=== PATIENT | male | born 1965 | race Two or more races ===

== ENCOUNTER 2023-10-16 10:21 | Emergency (ER) | payer MEDICAID ==
[~2023-10-16] VITALS: Ht 177.8 cm; Wt 87.5 kg
[2023-10-16 11:50] LABS: Basophils # (auto) 0 10 ^3/uL (0-0.2); Basophils % (auto) 0.5 % (0.0-2.0); Eosinophils # (auto) 0.1 10 ^3/uL (0-0.8); Eosinophils % (auto) 1.4 % (0.0-7.0); Hematocrit 41.5 % (41.0-53.0); Hemoglobin 13.6 g/dL (13.5-17.5); Lymphocytes # (auto) 1.2 10 ^3/uL (0.4-5.4); Lymphocytes % (auto) 27.6 % (10.0-50.0); Mean Corpuscular Hemoglobin 30.3 pg (28.0-32.0); Mean Corpuscular Hgb Conc. 32.9 g/dL (32.0-36.0); Mean Corpuscular Volume 92.2 fL (80.0-100.0); Monocytes # (auto) 0.3 10 ^3/uL (0-1.3); Monocytes % (auto) 8.2 % (0.0-12.0); Neutrophils # (auto) 2.6 10 ^3/uL (1.6-8.6); Neutrophils % (auto) 62.3 % (37.0-80.0); Nucleated Red Blood Cells % 0.2 %; Red Cell Distribution Width 14.2 % (11.8-14.3); White Blood Cell 4.2 10^3/uL (4.4-10.8)
[2023-10-16 11:53] LABS: Albumin 4.5 g/dL (3.2-4.8); Alkaline Phosphatase 70 U/L (46-116); Anion Gap 7 (5-15); Aspartate Aminotransferase 13 U/L (13-40); BUN/Creatinine Ratio 13.2 (10.0-20.0); Blood Urea Nitrogen 12 mg/dL (9-23); Calcium 9.9 mg/dL (8.5-10.1); Carbon Dioxide 28 mmol/L (20-30); Chloride 108 mmol/L (98-107); Glucose 109 mg/dL (74-106); Sodium 143 mmol/L (136-145)
[2023-10-16 11:54] LABS: Bilirubin, Total 0.9 mg/dL (0.2-1.0); Total Protein 6.9 g/dL (5.7-8.2)
[2023-10-16 11:59] VITALS: TEMP 98.4
[2023-10-16 12:00] LABS: Alanine Aminotransferase < 9 U/L (7-40)
[2023-10-16 13:35] LABS: Urine Bacteria None Seen /hpf (None Seen)
[2023-10-16 13:57] LABS: Urine Blood Negative /uL (Negative); Urine Clarity Clear (Clear); Urine Color Light-Yellow (Yellow); Urine Protein, UAD Negative (Negative); Urine Specific Gravity 1.013 (1.001-1.035); Urine Urobilinogen Normal (Negative); Urine WBC 1 /hpf (0 - 3); Urine pH 6.5 (5.0-9.0)
[2023-10-16 15:39] VITALS: BP 106/61; PULSE 58; RESP 18; O2SAT 98
== END 2023-10-16 17:01 | disposition home or self-care (01) ==
LOC: ER 10:21
DX: R06.00 Dyspnea, unspecified (principal); R07.89 Other chest pain
CPT/HCPCS: 36415; 71046; 80053; 81001; 84484; 85025; 85379; 93005

== ENCOUNTER 2024-04-01 10:45 | Emergency (ER) | payer MEDICAID ==
[~2024-04-01] VITALS: Ht 175.3 cm; Wt 88.0 kg
[2024-04-01 11:30] LABS: Urine Bacteria None Seen /hpf (None Seen)
[2024-04-01 11:42] LABS: Basophils # (auto) 0 10 ^3/uL (0-0.2); Basophils % (auto) 0.9 % (0.0-2.0); Eosinophils # (auto) 0.1 10 ^3/uL (0-0.8); Eosinophils % (auto) 1.6 % (0.0-7.0); Hematocrit 39.6 % (41.0-53.0); Hemoglobin 13.8 g/dL (13.5-17.5); Lymphocytes # (auto) 1.1 10 ^3/uL (0.4-5.4); Lymphocytes % (auto) 26.8 % (10.0-50.0); Mean Corpuscular Hemoglobin 32.1 pg (28.0-32.0); Mean Corpuscular Hgb Conc. 34.8 g/dL (32.0-36.0); Mean Corpuscular Volume 92.2 fL (80.0-100.0); Monocytes # (auto) 0.3 10 ^3/uL (0-1.3); Neutrophils # (auto) 2.6 10 ^3/uL (1.6-8.6); Neutrophils % (auto) 63.7 % (37.0-80.0); Nucleated Red Blood Cells % 0.1 %; Platelet Count (auto) 205 10^3/uL (140-450); Red Cell Distribution Width 13.3 % (11.8-14.3)
[2024-04-01 11:42] LABS: Urine Blood Negative /uL (Negative); Urine Clarity Clear (Clear); Urine Color Colorless (Yellow); Urine Protein, UAD Negative (Negative); Urine Specific Gravity 1.003 (1.001-1.035); Urine Urobilinogen Normal (Negative); Urine WBC <1 /hpf (0 - 3)
[2024-04-01] MEDS: KETOROLAC TROMETH 30 MG/ML 1ML VIAL IV ONE (11:53)
[2024-04-01] MEDS: FAMOTIDINE (10MG/ML) 2ML VL IV ONE (11:53)
[2024-04-01] MEDS: ONDANSETRON HCL 4 MG/2 ML VIAL IV ONE (11:53)
[2024-04-01 12:00] LABS: Albumin 4.5 g/dL (3.2-4.8); Alkaline Phosphatase 77 U/L (46-116); Anion Gap 6 (5-15); Aspartate Aminotransferase 12 U/L (13-40); BUN/Creatinine Ratio 9.2 (10.0-20.0); Bilirubin, Total 0.7 mg/dL (0.2-1.0); Blood Urea Nitrogen 8 mg/dL (9-23); Calcium 9.6 mg/dL (8.7-10.4); Carbon Dioxide 26 mmol/L (20-31); Chloride 111 mmol/L (98-107); Glucose 124 mg/dL (74-106); Potassium 3.9 mmol/L (3.5-5.1); Sodium 143 mmol/L (136-145)
[2024-04-01 12:01] LABS: Total Protein 7.2 g/dL (5.7-8.2)
[2024-04-01 12:07] LABS: Alanine Aminotransferase < 9 U/L (7-40)
[2024-04-01 12:09] VITALS: PULSE 62; RESP 14; O2SAT 97
[2024-04-01 13:06] VITALS: BP 119/73; PULSE 55; RESP 18; TEMP 98.2; O2SAT 97
[2024-04-01] MEDS ORDERED: FAMO-161 PO (13:17)
[2024-04-01] MEDS ORDERED: ACET-1304 PO (13:17)
[2024-04-01] MEDS ORDERED: DICY10CA PO (13:17)
== END 2024-04-01 14:34 | disposition home or self-care (01) ==
LOC: ER 10:45
DX: R10.13 Epigastric pain (principal); R10.11 Right upper quadrant pain; Z90.49 Acquired absence of other specified parts of digestive tract; Z98.890 Other specified postprocedural states; Z88.8 Allergy status to other drugs, medicaments and biological substances; Z79.899 Other long term (current) drug therapy
CPT/HCPCS: 36415; 74176; 80053; 81001; 83690; 85025; 96374; 96375; 99285; J1885; J2405; J3490

== ENCOUNTER → 2024-08-01 | Outpatient (CLI) | payer MEDICAID ==
[~2024-08-01] MED LIST: ACET-1304 PO; DICY10CA PO; FAMO-161 PO
[2024-08-01] MEDS: REGADENOSON 0.4 MG/5 ML SYRG IV ONE (11:13)
--- NOTE | 2024-08-01 18:03 | DVHSR ---
APPROVED REPORT Exam: Nuclear Stress Test Indication: Chest Pain Stress Tech: Valeria Rondon Ht: 5 ft 9 in Wt: 193 lbs BSA: 2.03 m2 HR: 46 bpm BP: 111/66 mmHg BMI: 28.49 Rhythm: NSR. Medical History Medical History: HARVINDER, Hyperlipidemia, former smoker, EF 55% Allergies: No known drug allergies Stress Test Details Stress Test: Pharmacologic stress testing performed using 0.4 mg of regadenoson per 5 mL given IV ov er 10 seconds. Reason for pharmacologic stress test: Chest Pain. HR Resting HR: 46 bpmMax Heart Rate (APMHR): 162.526528 bpm Max HR Achieved: 99 bpmTarget HR (85% APMHR): 137.987004 bpm % of APMHR: 61.11 Recovery HR: 70 bpm BP Resting BP: 111/66 mmHg Recovery BP: 109/63 mmHg ECG Resting ECG: NSR Clinical Reason for Termination: Completed protocol Nurse Comments Uneventful test Stress ECG Conclusion lvef 66% normal perfusion scan no ischemia NM EXAM: Myocardial Perfusion REST/STRESS Imaging Protocol: Rest Tc-99m/Stress Tc-99m 1 day Resting Data Rest SPECT myocardial perfusion imaging was performed in supine position 60 minutes following the int ravenous injection of 12.5 mCi of Tc-99m Sestamibi. Time of rest injection: 1000 Time of rest imagin Administration Route: IV Administration Site: Left AC Pharmacologic Stress Pharmacologic stress test was performed by injecting Regadenoson 0.4 mg IV push followed by the intra venous injection of 36.2 mCi of Tc-99m Sestamibi. Time of stress injection: 1115 Time of stress imagin Administration Route: IV Administration Site: Left AC Gated Stress SPECT was performed 60 minutes after stress injection. The images were gated to evaluate regional wall motion and calculate left ventricular ejection fracti on. Stress only was performed in the Supine position. Nuclear Conclusion Nuclear Findings: negative for ischemia lvef 66% normal perfusion scan no ischemia
== END | disposition home or self-care (01) ==
LOC: XYW 09:15
PROVIDERS: ATTEND Internal Medicine
DX: R07.9 Chest pain, unspecified (principal); E78.5 Hyperlipidemia, unspecified; G47.33 Obstructive sleep apnea (adult) (pediatric); Z87.891 Personal history of nicotine dependence
CPT/HCPCS: 78452; 93017; A9500

== ENCOUNTER 2024-11-04 22:58 | Emergency (ER) | payer MEDICAID ==
[~2024-11-04] VITALS: Ht 175.3 cm; Wt 87.7 kg
--- NOTE | 2024-11-04 23:36 | ED.PDOC ---
History of Present Illness HPI Comments 59-year-old male who came to ER for abdominal pain. Patient states he had laparoscopic inguinal hernia repair done earlier at [facility]. Shortly afterwards, he started having chest pains, upper back pains, abdominal pain, shortness a breath. Patient keeps rolling his tongue in and out, stating that he feels very thirsty but he is unable to swallow. Patient is very agitated at this time of care Chief Complaint: Abdominal Pain Time Seen by MD: 23:36 Primary Care Provider: unknown Reviewed Notes: Nurses Notes Allergies: Coded Allergies: Cortisone (Verified Allergy, Mild, 10/16/23) Home Meds Active Scripts Famotidine (Pepcid AC) 20 Mg Tab, 20 MG PO BID, #60 TAB Prov:GRAZYNA FERNANDEZ MD 04/01/24 Acetaminophen (Tylenol Extra Strength) 500 Mg Tab, 1000 MG PO Q6HP PRN, #30 TAB prn pain Prov:GRAZYNA FERNANDEZ MD 04/01/24 Dicyclomine Hcl (BENTYL CAPSULE) 10 Mg Cp, 2 CAP PO Q6HP PRN, #30 CAP 11 Refills prn abdominal pain Prov:GRAZYNA FERNANDEZ MD 04/01/24 Information Source: Patient Mode of Arrival: Ambulatory Severity: Moderate Timing: Hours Duration: Since onset Past Medical History PAST MEDICAL HISTORY: Denies Surgical History: Cholecystectomy, Hernia Repair Family History Family History: Reviewed,noncontributory to illness Social History Smoker: Non-Smoker Alcohol: Denies ETOH Use Drugs: Denies Drug Use Lives In: Home Constitutional: denies: chills, diaphoresis, fatigue, fever, malaise, sweats, weakness, others EENTM: denies: blurred vision, double vision, ear bleeding, ear discharge, ear drainage, ear pain, ear ringing, eye pain, eye redness, hearing loss, mouth pain, mouth swelling, nasal discharge, nose bleeding, nose congestion, nose pain, photophobia, tearing, throat pain, throat swelling, voice changes, others Respiratory: reports: SOB at rest, shortness of breath; denies: cough, hemoptysis, orthopnea, SOB with excertion, stridor, wheezing, others Cardiovascular: reports: chest pain; denies: dizzy spells, diaphoresis, Dyspnea on exertion, edema, irregular heart beat, left arm pain, lightheadedness, palpitations, PND, syncope, others Gastrointestinal: reports: abdominal pain; denies: abdomen distended, blood streaked bowels, constipated, diarrhea, dysphagia, difficulty swallowing, hematemesis, melena, nausea, poor appetite, poor fluid intake, rectal bleeding, rectal pain, vomiting, others Genitourinary: denies: burning, dysuria, flank pain, frequency, hematuria, incontinence, penile discharge, penile sore, pain, testicle pain, testicle swelling, urgency, others Neurological: denies: dizziness, fainting, headache, left sided numbness, left sided weakness, numbness, paresthesia, pre-existing deficit, right sided numbness, right sided weakness, seizure, speech problems, tingling, tremors, weakness, others Musculoskeletal: reports: back pain; denies: gout, joint pain, joint swelling, muscle pain, muscle stiffness, neck pain, others Integumetry: denies: bruises, change in color, change in hair/nails, dryness, laceration, lesions, lumps, rash, wounds, others Allergic/Immunocompromised: denies: Difficulty Healing, Frequent Infections, Hives, Itching, others Hematologic/Lymphatic: denies: anemia, blood clots, easy bleeding, easy bruising, swollen glands, others Endocrine: denies: excessive hunger, excessive sweating, excessive thirst, excessive urination, flushing, intolerance to cold, intolerance to heat, unexpl ained weight gain, unexplained weight loss, others Psychiatric: denies: anxiety, bipolar disorder, depression, hopeless, panic disorder, schizophrenia, sleepless, suicidal, others Physical Exam General Appearance: No Apparent Distress, Normal HEENT: Normal ENT Inspection, Pharynx Normal, TMs Normal Neck: Full Range of Motion, Non-Tender, Normal, Normal Inspection Respiratory: Chest Non-Tender, Lungs Clear, No Accessory Muscle Use, No Respiratory Distress, Normal Breath Sounds Cardiovascular: No Edema, No JVD, No Murmur, No Gallop, Normal Peripheral Pulses, Regular Rate/Rhythm Breast Exam: Deferred Gastrointestinal: No Organomegaly, Non Tender, No Pulsatile Mass, Normal Bowel Sounds, Soft Genitalia: Deferred Pelvic: Deferred Rectal: Deferred Extremities: No calf tenderness, Normal capillary refill, Normal inspection, Normal range of motion, Non-tender, No pedal edema Musculoskeletal : Apperance: Normal Neurologic: Alert, site surveyor II-XII nml as Tested, No Motor Deficits, Normal Affect, Normal Mood, No Sensory Deficits Cerebellar Function: Normal Reflexes: Normal Skin: Dry, Normal Color, Warm Lymphatic: No Adenopathy Was a procedure done? Was a procedure done?: No Differential Dx Considerations may include: Pneumonia, hernia, pulmonary emboli, substance abuse X-Ray, Labs, Meds, VS Vital Signs Date Time Temp Pulse Resp B/P (MAP) Pulse Ox O2 Delivery O2 Flow Rate FiO2 11/05/24 01:43 98.7 85 18 103/60 (74) 95 98.7 11/05/24 00:25 89 17 127/84 11/04/24 23:55 89 17 150/87 11/04/24 23:41 89 17 97 Room Air* 0 21 11/04/24 23:40 98.8 88 19 150/87 (108) 97 98.8 11/04/24 23:36 100.0 83 26 142/90 (107) 97 100.0 11/04/24 23:33 85 Lab Test 11/05/24 02:43 11/05/24 00:58 11/04/24 23:59 11/04/24 23:27 Range/Units POC Glucose 163 H 70-106 mg/dl Blood Gas Specimen Type Venous Blood Gas Sample Site Other Blood Gas Patient Temperature 37.0 Arterial Blood Date Drawn [id number] Conrad Test N/a Venous Blood pH 7.392 7.320-7.430 Venous Blood pCO2 at Patient Temp 36.2 L 38.0-54.0 mmHg Venous Blood pO2 at Patient Temp 50.0 H 23.0-48.0 mmHg Venous Blood HCO3 21.5 L 22.0-29.0 mmol/L Venous Blood Base Excess -2.8 L -2.0-3.0 mmol/L Blood Gas Modality Room air FiO2 % 21.0 Blood Gas Comments Vbg Urine Color Light-yellow Yellow Urine Clarity Clear Clear Urine pH 6.5 5.0-9.0 Urine Specific [place] 1.011 1.001-1.035 Urine Protein Negative Negative Urine Ketones Trace Negative Urine Blood Negative Negative /uL Urine Nitrite Negative Negative Urine Bilirubin Negative Negative Urine Urobilinogen Normal Negative mg/dL Urine Leukocyte Esterase Negative Negative /uL Urine RBC 1 0 - 3 /hpf Urine Microscopic WBC < 1 0-3 /HPF Urine Squamous Epithelial Cells None seen <5 /hpf Urine Bacteria None seen None Seen /hpf Urine Glucose 1+ H Normal mg/dL Urine Opiates Screen Pos NEGATIVE Urine Fentanyl Screen Pos NEGATIVE Urine Barbiturates Screen Neg NEGATIVE Urine Phencyclidine Screen Neg NEGATIVE Urine Amphetamines Screen Neg NEGATIVE Urine Benzodiazepines Screen Pos NEGATIVE Urine Cocaine Screen Neg NEGATIVE Urine Cannabinoids Screen Neg NEGATIVE White Blood Count 7.7 4.4-10.8 10^3/uL Red Blood Count 4.50 4.5-5.90 10^6/uL Hemoglobin 13.9 13.5-17.5 g/dL Hematocrit 41.4 41.0-53.0 % Mean Corpuscular Volume 91.9 80.0-100.0 fL Mean Corpuscular Hemoglobin 30.9 28.0-32.0 pg Mean Corpuscular Hemoglobin Concent 33.6 32.0-36.0 g/dL Red Cell Distribution Width 13.3 11.8-14.3 % Platelet Count 216 140-450 10^3/uL Mean Platelet Volume 8.2 6.9-10.8 fL Neutrophils (%) (Auto) 90.9 H 37.0-80.0 % Lymphocytes (%) (Auto) 7.7 L 10.0-50.0 % Monocytes (%) (Auto) 1.2 0.0-12.0 % Eosinophils (%) (Auto) 0.0 0.0-7.0 % Basophils (%) (Auto) 0.2 0.0-2.0 % Neutrophils # (Auto) 7.0 1.6-8.6 10 ^3/uL Lymphocytes # (Auto) 0.6 0.4-5.4 10 ^3/uL Monocytes # (Auto) 0.1 0-1.3 10 ^3/uL Eosinophils # (Auto) 0 0-0.8 10 ^3/uL Basophils # (Auto) 0 0-0.2 10 ^3/uL Nucleated Red Blood Cells 0.0 % Prothrombin Time 10.7 9.3-11.8 sec Prothrombin Time INR 1.01 0.9-1.15 Activated Partial Thromboplast Time 25.3 24.5-34.5 SEC Sodium Level 133 L 136-145 mmol/L Potassium Level 3.9 3.5-5.1 mmol/L Chloride Level 100 98-107 mmol/L Carbon Dioxide Level 16 L 20-31 mmol/L Anion Gap 17 H 5-15 Blood Urea Nitrogen 12 9-23 mg/dL Creatinine 0.96 0.700-1.30 mg/dL Glomerular Filtration Rate Calc 92 >90 mL/min BUN/Creatinine Ratio 12.5 10.0-20.0 Serum Glucose 215 H 74-106 mg/dL Calcium Level 9.1 8.7-10.4 mg/dL Total Bilirubin 1.2 H 0.2-1.0 mg/dL Aspartate Amino Transferase (AST) 44 H 13-40 U/L Alanine Aminotransferase (ALT) 34 7-40 U/L Alkaline Phosphatase 82 46-116 U/L Total Protein 7.1 5.7-8.2 g/dL Albumin 4.5 3.2-4.8 g/dL Lipase 28 12-53 U/L Current Medications Medications (Trade) Dose Ordered Sig/Javier Route Start Time Stop Time Status Last Admin Ondansetron HCl (Zofran) 4 mg ONCE ONCE IV 11/04/24 23:30 11/04/24 23:31 DC 11/04/24 23:56 Sodium Chloride 1,000 ml @ 1,000 mls/hr Q1H ONCE IVB 11/04/24 23:30 11/05/24 00:29 DC 11/04/24 23:56 Morphine Sulfate 4 mg ONCE ONCE IV 11/04/24 23:30 11/04/24 23:31 DC 11/04/24 23:55 Time of 1ST Reevaluation: 23:30 Reevaluation 1ST: Unchanged Patient Education/Counseling: Diagnosis, Treatment Family Education/Counseling: No Family Present Departure 1 Departure Time of Disposition: 01:00 Impression: Primary Impression: Abdominal pain Additional Impression: Post-operative pain Disposition: 01 HOME / SELF CARE / HOMELESS Condition: Stable Discharged With: Self Critical Care Note Critical Care Time?: No Stability Stability form required: No Heart Score Heart Score: Heart Score Response (Comments) Value History N/A 0 EKG N/A 0 Age N/A 0 Risk Factors N/A 0 Troponin N/A 0 Total 0 I personally scribed for KANCHAN HEARN MD ([email or web address]) on 11/04/24 at 23:36. Electronically submitted by Raúl Khan ([facility] I personally scribed for KANCHAN HEARN MD ([email or web address]) on 11/04/24 at 23:37. Electronically submitted by Raúl Khan ([facility] KANCHAN HEARN MD November 04, 2024 23:36
[2024-11-04 23:41] VITALS: PULSE 89; RESP 17; O2SAT 97
[2024-11-04 23:43] LABS: Basophils # (auto) 0 10 ^3/uL (0-0.2); Basophils % (auto) 0.2 % (0.0-2.0); Eosinophils # (auto) 0 10 ^3/uL (0-0.8); Hematocrit 41.4 % (41.0-53.0); Hemoglobin 13.9 g/dL (13.5-17.5); Lymphocytes # (auto) 0.6 10 ^3/uL (0.4-5.4); Lymphocytes % (auto) 7.7 % (10.0-50.0); Mean Corpuscular Hemoglobin 30.9 pg (28.0-32.0); Mean Corpuscular Hgb Conc. 33.6 g/dL (32.0-36.0); Mean Corpuscular Volume 91.9 fL (80.0-100.0); Monocytes # (auto) 0.1 10 ^3/uL (0-1.3); Monocytes % (auto) 1.2 % (0.0-12.0); Neutrophils % (auto) 90.9 % (37.0-80.0); Platelet Count (auto) 216 10^3/uL (140-450); Red Cell Distribution Width 13.3 % (11.8-14.3); White Blood Cell 7.7 10^3/uL (4.4-10.8)
[2024-11-04] MEDS: MORPHINE SULFATE 4 MG/ML SYR/VIAL IV ONE (23:55)
[2024-11-04] MEDS: SODIUM CHLORIDE 0.9% 1,000 ML IVB ONE (23:56)
[2024-11-04] MEDS: ONDANSETRON HCL 4 MG/2 ML VIAL IV ONE (23:56)
[2024-11-05 00:06] LABS: Alanine Aminotransferase 34 U/L (7-40); Albumin 4.5 g/dL (3.2-4.8); Alkaline Phosphatase 82 U/L (46-116); Anion Gap 17 (5-15); BUN/Creatinine Ratio 12.5 (10.0-20.0); Blood Urea Nitrogen 12 mg/dL (9-23); Calcium 9.1 mg/dL (8.7-10.4); Chloride 100 mmol/L (98-107); Lipase 28 U/L (12-53); Potassium 3.9 mmol/L (3.5-5.1); Total Protein 7.1 g/dL (5.7-8.2)
[2024-11-05 00:17] LABS: Aspartate Aminotransferase 44 U/L (13-40); Bilirubin, Total 1.2 mg/dL (0.2-1.0); Carbon Dioxide 16 mmol/L (20-31); Glucose 215 mg/dL (74-106); Sodium 133 mmol/L (136-145)
[2024-11-05 00:40] LABS: INR 1.01 (0.9-1.15); Partial Thromboplastin Time 25.3 SEC (24.5-34.5); Prothrombin Time 10.7 sec (9.3-11.8)
[2024-11-05 01:05] LABS: Urine Bacteria None Seen /hpf (None Seen)
[2024-11-05 01:09] LABS: Urine Blood Negative /uL (Negative); Urine Clarity Clear (Clear); Urine Color Light-Yellow (Yellow); Urine Protein, UAD Negative (Negative); Urine Specific Gravity 1.011 (1.001-1.035); Urine Squamous Epithelial Cell None Seen /hpf (<5); Urine Urobilinogen Normal (Negative); Urine WBC < 1 /HPF (0-3); Urine pH 6.5 (5.0-9.0)
[2024-11-05] MEDS: IOHEXOL 300 MG/ML 100ML BOTTLE IJ ONE (01:29)
[2024-11-05 01:36] LABS: Opiate Scree,Urine Pos (NEGATIVE)
[2024-11-05 01:42] LABS: Amphetamine Screen, Urine Neg (NEGATIVE); Barbiturate Scree,Urine Neg (NEGATIVE); Benzodiazephine Screen, Urine Pos (NEGATIVE); Cannabinoid Screen, Urine Neg (NEGATIVE); Cocaine Screen, Urine Neg (NEGATIVE); Phencyclidine Screen, Urine Neg (NEGATIVE)
[2024-11-05 03:45] VITALS: BP 118/71; PULSE 79; RESP 18; TEMP 98.1; O2SAT 96
--- NOTE | 2024-11-05 06:13 | DVH ---
Exam: CT CT CHEST/AB/PL W CON- IV ONLY History: chest pain after hernia surgery Comparison Study: None Technique: Multidetector spiral CT of the chest, abdomen and pelvis was performed from lower neck to pubic symphysis. Intravenous contrast was administered during this examination. Portal venous imagi ng was obtained. Axial, coronal and sagittal multiplanar reformats were performed by the technologist on a separate workstation. Radiation Dose : 1. Chest/Abdomen/Pelvis: CTDIvol 22.4 mGy, DLP 1672.8 mGy*cm. Findings: Lower neck: Normal thyroid. Lungs: Dependent subsegmental atelectasis. Heart/Vascular Structures: Normal heart size. No pericardial effusion. Lymph Nodes: No adenopathy Pleura: No pleural effusion or significant pneumothorax. Liver: The liver is normal in size. No focal lesions. Normal hepatic vascular enhancement. Gallbladder and Biliary Tree: Gallbladder is surgically absent. Spleen: Unremarkable Pancreas: The pancreas is normal in appearance without focal lesions or abnormal enhancement. Adrenal Glands: Unremarkable Kidneys: Kidneys demonstrate normal symmetric enhancement without focal lesions, calculi or hydroneph rosis. Bladder: Distended. Bowel: The stomach is grossly normal in appearance. Small bowel and colon are normal in caliber and d istribution. The appendix is not visualized; however, no secondary findings of acute appendicitis taqueria ntified. Ascites: Absent Lymphadenopathy: No mesenteric, retroperitoneal or periportal lymphadenopathy. Abdominal Wall and Mesentery: Small volume free intraperitoneal air is likely postsurgical. Small volume fluid and gas in the right inguinal region. Vasculature: The visualized abdominal aorta is normal in size and caliber. Abdominal and pelvic vess els demonstrate normal enhancement. Pelvic Organs: Unremarkable Musculoskeletal: No aggressive focal bony lesions, acute fractures or dislocation. Degenerative shay es of the spine. Spinal fixation hardware at L5-S1. IMPRESSION: Dependent subsegmental atelectasis. Small volume free intraperitoneal air is likely postsurgical. Small volume fluid and gas in the right inguinal region may be postsurgical.
== END 2024-11-05 05:20 | disposition left against medical advice (07) ==
LOC: ER 22:58
DX: R10.84 Generalized abdominal pain (principal); G89.18 Other acute postprocedural pain; Z98.890 Other specified postprocedural states; Z90.49 Acquired absence of other specified parts of digestive tract; Z79.899 Other long term (current) drug therapy
CPT/HCPCS: 36415; 36600; 71260; 74177; 80053; 80307; 81001; 82805; 82947; 83690; 85025; 85610; 85730; 96361; 96374; 96375; 99285; J2270; J2405; J7030; Q9967; 82962

== ENCOUNTER 2025-01-22 09:44 | Inpatient (IN) | payer MEDICAID ==
[~2025-01-22] VITALS: Ht 175.3 cm
--- NOTE | 2025-01-22 10:18 | ED.PDOC ---
History of Present Illness HPI Comments 59 y/o M, presents to the ED for CC of tube placement. Patient reports, he was sent by PCP for a PICC line placement d/t osteomyelitis of the left knee and needing IV antibiotics. Patient denies fever, chills, or sweats. No other symptoms or modifying factors present at this time. Chief Complaint: Tube Replacement Time Seen by MD: 10:15 Primary Care Provider: unknown Reviewed Notes: Nurses Notes, Medications, Allergies Allergies: Coded Allergies: Cortisone (Verified Allergy, Mild, 10/16/23) Home Meds Active Scripts Famotidine (Pepcid AC) 20 Mg Tab, 20 MG PO BID, #60 TAB Prov:GRAZYNA FERNANDEZ MD 04/01/24 Acetaminophen (Tylenol Extra Strength) 500 Mg Tab, 1000 MG PO Q6HP PRN, #30 TAB prn pain Prov:GRAZYNA FERNANDEZ MD 04/01/24 Dicyclomine Hcl (BENTYL CAPSULE) 10 Mg Cp, 2 CAP PO Q6HP PRN, #30 CAP 11 Refills prn abdominal pain Prov:GRAZYNA FERNANDEZ MD 04/01/24 Information Source: Patient Mode of Arrival: Ambulatory Severity: Moderate Timing: Days Duration: Since onset Prehospital treatment: None Past Medical History PAST MEDICAL HISTORY: Denies Surgical History: Cholecystectomy, Hernia Repair Family History Family History: Reviewed,noncontributory to illness Social History Smoker: Non-Smoker Alcohol: Denies ETOH Use Drugs: Denies Drug Use Lives In: Home Constitutional: denies: chills, diaphoresis, fatigue, fever, malaise, sweats, weakness, others EENTM: denies: blurred vision, double vision, ear bleeding, ear discharge, ear drainage, ear pain, ear ringing, eye pain, eye redness, hearing loss, mouth pain, mouth swelling, nasal discharge, nose bleeding, nose congestion, nose pain, photophobia, tearing, throat pain, throat swelling, voice changes, others Respiratory: denies: cough, hemoptysis, orthopnea, SOB at rest, shortness of b reath, SOB with excertion, stridor, wheezing, others Cardiovascular: denies: chest pain, dizzy spells, diaphoresis, Dyspnea on exertion, edema, irregular heart beat, left arm pain, lightheadedness, palpitations, PND, syncope, others Gastrointestinal: denies: abdomen distended, abdominal pain, blood streaked bowels, constipated, diarrhea, dysphagia, difficulty swallowing, hematemesis, melena, nausea, poor appetite, poor fluid intake, rectal bleeding, rectal pain, vomiting, others Genitourinary: denies: burning, dysuria, flank pain, frequency, hematuria, incontinence, penile discharge, penile sore, pain, testicle pain, testicle swelling, urgency, others Neurological: denies: dizziness, fainting, headache, left sided numbness, left sided weakness, numbness, paresthesia, pre-existing deficit, right sided numbness, right sided weakness, seizure, speech problems, tingling, tremors, weakness, others Musculoskeletal: denies: back pain, gout, joint pain, joint swelling, muscle pain, muscle stiffness, neck pain, others Integumetry: denies: bruises, change in color, change in hair/nails, dryness, laceration, lesions, lumps, rash, wounds, others Allergic/Immunocompromised: denies: Difficulty Healing, Frequent Infections, Hives, Itching, others Hematologic/Lymphatic: denies: anemia, blood clots, easy bleeding, easy bruising, swollen glands, others Endocrine: denies: excessive hunger, excessive sweating, excessive thirst, excessive urination, flushing, intolerance to cold, intolerance to heat, unexplained weight gain, unexplained weight loss, others Psychiatric: denies: anxiety, bipolar disorder, depression, hopeless, panic disorder, schizophrenia, sleepless, suicidal, others All Other Systems: Reviewed and Negative Physical Exam General Appearance: Moderate Distress HEENT: Normal ENT Inspection, Pharynx Normal, TMs Normal Neck: Full Range of Motion, Non-Tender, Normal, Normal Inspection Respiratory: Chest Non-Tender, Lungs Clear, No Accessory Muscle Use, No Respiratory Distress, Normal Breath Sounds Cardiovascular: No Edema, No JVD, No Murmur, No Gallop, Normal Peripheral Pulses, Regular Rate/Rhythm Breast Exam: Deferred Gastrointestinal: No Organomegaly, Non Tender, No Pulsatile Mass, Normal Bowel Sounds, Soft Genitalia: Deferred Pelvic: Deferred Rectal: Deferred Extremities: Swelling (Left knee) Musculoskeletal : Apperance: Normal Neurologic: Alert, chief pilot II-XII nml as Tested, No Motor Deficits, Normal Affect, Normal Mood, No Sensory Deficits Cerebellar Function: Normal Reflexes: Normal Skin: Dry, Normal Color, Warm Peripheral Pulses: 3+ Radial (R), 3+ Radial (L) Lymphatic: No Adenopathy Was a procedure done? Was a procedure done?: No Differential Dx Considerations may include: PICC LINE PLACEMENT X-Ray, Labs, Meds, VS Vital Signs Date Time Temp Pulse Resp B/P (MAP) Pulse Ox O2 Delivery O2 Flow Rate FiO2 01/22/25 12:28 97.6 57 14 120/76 (91) 94 97.6 01/22/25 09:47 97.7 64 16 113/72 96 97.7 Lab Test 01/22/25 11:56 Range/Units White Blood Count 3.9 L 4.4-10.8 10^3/uL Red Blood Count 4.45 L 4.5-5.90 10^6/uL Hemoglobin 13.9 13.5-17.5 g/dL Hematocrit 40.3 L 41.0-53.0 % Mean Corpuscular Volume 90.5 80.0-100.0 fL Mean Corpuscular Hemoglobin 31.3 28.0-32.0 pg Mean Corpuscular Hemoglobin Concent 34.6 32.0-36.0 g/dL Red Cell Distribution Width 13.9 11.8-14.3 % Platelet Count 199 140-450 10^3/uL Mean Platelet Volume 8.2 6.9-10.8 fL Neutrophils (%) (Auto) 63.1 37.0-80.0 % Lymphocytes (%) (Auto) 27.1 10.0-50.0 % Monocytes (%) (Auto) 6.9 0.0-12.0 % Eosinophils (%) (Auto) 2.0 0.0-7.0 % Basophils (%) (Auto) 0.9 0.0-2.0 % Neutrophils # (Auto) 2.5 1.6-8.6 10 ^3/uL Lymphocytes # (Auto) 1.1 0.4-5.4 10 ^3/uL Monocytes # (Auto) 0.3 0-1.3 10 ^3/uL Eosinophils # (Auto) 0.1 0-0.8 10 ^3/uL Basophils # (Auto) 0 0-0.2 10 ^3/uL Nucleated Red Blood Cells 0.2 % Sodium Level 144 136-145 mmol/L Potassium Level 3.9 3.5-5.1 mmol/L Chloride Level 111 H 98-107 mmol/L Carbon Dioxide Level 25 20-31 mmol/L Anion Gap 8 5-15 Blood Urea Nitrogen 12 9-23 mg/dL Creatinine 0.90 0.700-1.30 mg/dL Glomerular Filtration Rate Calc 99 >90 mL/min BUN/Creatinine Ratio 13.3 10.0-20.0 Serum Glucose 92 74-106 mg/dL Lactic Acid Level 0.9 0.4-2.0 mmol/L Calcium Level 8.9 8.7-10.4 mg/dL Current Medications Medications (Trade) Dose Ordered Sig/Javier Route Start Time Stop Time Status Last Admin Sodium Chloride 1,000 ml @ 1,000 mls/hr Q1H ONCE IV 01/22/25 11:30 01/22/25 12:29 DC 01/22/25 11:30 Patient alert. Possible septic knee. Vitals stable. Answering questions. Infectious disease referred the patient to the hospital for intravenous antibiotics pain PICC line. Possible osteomyelitis. Explained to the family. Continue monitoring. Time of 1ST Reevaluation: 10:45 Reevaluation 1ST: Unchanged Patient Education/Counseling: Diagnosis, Treatment Family Education/Counseling: No Family Present SEPSIS Sepsis Screen Date sepsis recognized/suspect: Jan 22, 2025 Time Sepsis recognized/suspect: 949 Recent Procedure: No On Antibiotic Therapy: No Respiratory Rate >20: No Heart Rate >90: No Temp<36 C (96.8 F) or >38.3 C: No SBP <90 or MAP <65 mmHG: No New Acute Mental Status Change: No Is the patient on CPAP, BIPAP,: No Physician Orders Blood Culture (01/22/25 11:21) Sodium Chloride 0.9% (01/22/25 11:30) Vital Signs Date Time Temp Pulse Resp B/P (MAP) Pulse Ox O2 Delivery O2 Flow Rate FiO2 01/22/25 12:28 97.6 57 14 120/76 (91) 94 97.6 01/22/25 09:47 97.7 64 16 113/72 96 97.7 Laboratory Tests Test 01/22/25 11:56 Lactic Acid Level 0.9 mmol/L (0.4-2.0) White Blood Count 3.9 10^3/uL (4.4-10.8) L Medications Medications Dose Ordered Sig/Javier Route Start Time Stop Time Status Last Admin Dose Admin Sodium Chloride 1,000 ml @ 1,000 mls/hr Q1H ONCE IV 01/22/25 11:30 01/22/25 12:29 DC 01/22/25 11:30 Departure 1 Departure Time of Disposition: 14:23 Impression: Primary Impression: Osteomyelitis Qualified Codes: M86.9 - Osteomyelitis, unspecified Disposition: ADMITTED INPATIENT Admit to: Med Surg Condition: Guarded Critical Care Note Critical Care Time?: No Stability Stability form required: No Heart Score Heart Score: Heart Score Response (Comments) Value History N/A 0 EKG N/A 0 Age N/A 0 Risk Factors N/A 0 Troponin N/A 0 Total 0 I personally scribed for UTE ANDERSON MD ([email or web address]) on 01/22/25 at 10:18. Electronically submitted by Olinda Padilla ([email or web address]). I personally scribed for UTE ANDERSON MD ([email or web address]) on 01/22/25 at 10:49. Electronically submitted by Olinda Padilla ([email or web address]). UTE ANDERSON MD Jan 22, 2025 10:18
[2025-01-22] MEDS: SODIUM CHLORIDE 0.9% 1,000 ML IV ONE ×2 (11:30)
[2025-01-22 12:16] LABS: Hematocrit 40.3 % (41.0-53.0); Hemoglobin 13.9 g/dL (13.5-17.5); Mean Corpuscular Hemoglobin 31.3 pg (28.0-32.0); Mean Corpuscular Volume 90.5 fL (80.0-100.0); Nucleated Red Blood Cells % 0.2 %
[2025-01-22 12:27] LABS: Potassium 3.9 mmol/L (3.5-5.1); Sodium 144 mmol/L (136-145)
[2025-01-22 12:28] LABS: Anion Gap 8 (5-15); Calcium 8.9 mg/dL (8.7-10.4); Carbon Dioxide 25 mmol/L (20-31)
[2025-01-22 12:30] LABS: Chloride 111 mmol/L (98-107)
[2025-01-22 12:33] LABS: BUN/Creatinine Ratio 13.3 (10.0-20.0); Blood Urea Nitrogen 12 mg/dL (9-23); Glucose 92 mg/dL (74-106)
[2025-01-22] MEDS ORDERED: DAPTOmycin 6MG/KG PER PHARMACY 0 MG IV SCH (14:00)
[2025-01-22] MEDS ORDERED: ONDANSETRON HCL 4 MG/2 ML VIAL IV PRN (14:00)
[2025-01-22] MEDS: cefTRIAXone 2GM/50ML D5W 50 ML IV ONE (14:00)
[2025-01-22] MEDS: SODIUM CHLORIDE 0.9% 1,000 ML IV SCH (14:00)
[2025-01-22] MEDS ORDERED: NITROGLYCERIN 0.4 MG SL TAB SL PRN (14:00)
[2025-01-22] MEDS: HYDROcodone-ACET 5/325MG TAB PO PRN (15:20)
--- NOTE | 2025-01-22 17:47 | DVHHP2 ---
History of Present Illness Reason for Visit: here for om care History of Present Illness 59-year-old male with past medical history significant for prior knee surgery and repair presents to the ED with his , carrying a note from his primary care physician, Dr. Pollack, requesting PICC line placement and initiation of IV antibiotics for osteomyelitis of the left knee. The patient has had two prior surgeries on the knee, including a revision by Dr. Inman in january 25, 2024 most recent one per , Despite these interventions, he continues to have knee pain. A recent bone scan confirmed osteomyelitis of the left knee. His primary physician recommended initiation of IV antibiotics specifically vancomycin and daptomycin with weekly laboratory monitoring during treatment. It was also advised that if there is no improvement after six weeks of therapy, the patient may require another revision surgery with hardware removal. Currently, he reports medial and lateral knee pain, swelling, and decreased range of motion due to pain. Examination shows soft compartments, no erythema, and no warmth. In the ED, he was given normal saline. CBC, BMP, and lactate were unremarkable. His , Ruchi, provided much of the history and can be reached at [phone]. He will be admitted for initiation of IV antibiotics, PICC line placement, knee stabilization, and coordination of discharge planning with case management. Past Medical History See HPI above Past Surgical History See HPI above Family History Reviewed, non-contributory to the management of this case. Past Social History The patient lives at home, denies smoking, alcohol or illicit drugs abuse. Review of Systems Constitutional: No: Fever, Chills, Sweats, Weakness, Malaise, Other Eyes: No: Pain, Vision change, Conjunctivae inflammation, Eyelid inflammation, Other, Redness ENT: No: Ear pain, Ear discharge, Nose pain, Nose discharge, Nose congestion, Mouth pain, Mouth swelling, Throat pain, Throat swelling, Other Respiratory: No: Cough, Dry, Shortness of breath, SOB with excertion, Wheezing, Hemoptysis, Pleuritic Pain, Sputum, Wheezing, Other Cardiovascular: No: Chest Pain, Palpitations, Orthopnea, Paroxysmal Noc. Dyspnea, Edema, Lt Headedness, Other Gastrointestinal: No: Nausea, Vomiting, Abdominal Pain, Diarrhea, Constipation, Melena, Hematochezia, Other Genitourinary: No Dysuria, No Frequency, No Incontinence, No Hematuria, No Retention, No Other Musculoskeletal: other (Knee pain); No: neck pain, shoulder pain, arm pain, back pain, hand pain, leg pain, foot pain Skin: No: Rash, Lesions, Jaundice, Bruising, Other Neurological: Weakness; No: Numbness, Incoordination, Change in speech, Confusion, Seizures, Other Allergies: Coded Allergies: Cortisone (Verified Allergy, Mild, 10/16/23) Medications Current Medications Medications Dose Ordered Sig/Javier Route Start Time Stop Time Status Last Admin Dose Admin Sodium Chloride 1,000 ml @ 70 mls/hr [id number] IV 01/22/25 14:00 Acetaminophen/ Hydrocodone Bitart 1 tab Q4HP PRN PO 01/22/25 14:00 01/22/25 15:20 1 TAB Ondansetron HCl 4 mg Q4HP PRN IV 01/22/25 14:00 Docusate Sodium 100 mg BIDPRN PRN PO 01/22/25 14:00 Enoxaparin Sodium 40 mg DAILY SC 01/23/25 10:00 Nitroglycerin 0.4 mg Q5MINP PRN SL 01/22/25 14:00 Ceftriaxone Sodium/Dextrose 50 ml @ 50 mls/hr DAILY IV 01/23/25 10:00 Daptomycin 0 ml @ 0 mls/hr PER PHARMACY IV 01/22/25 14:00 Daptomycin 500 mg/ Sodium Chloride 50 ml @ 100 mls/hr DAILY@1500 IV 01/22/25 15:00 Exam Vital Signs Vital Signs Date Time Temp Pulse Resp B/P (MAP) Pulse Ox O2 Delivery O2 Flow Rate FiO2 01/22/25 12:28 97.6 57 14 120/76 (91) 94 97.6 General Appearance: Alert, Oriented X3, Cooperative, No acute distress HEENT: Atraumatic, PERRLA, EOMI, Mucous membr. moist/pink Respiratory: Clear to auscultation, Normal air movement Cardiovascular: Regular rate, Normal S1, Normal S2, No murmurs Abdominal: Normal bowel sounds, Soft, No tenderness, No hepatospenomegaly, No masses, Other (left knee with swelling compartment soft nvi mild effusion no heat ) Extremities: No clubbing, No cyanosis, Normal pulses Skin: No rashes, No breakdown, No significant lesion Neuro: Normal gait, Normal speech, Strength at 5/5 X4 ext, Normal tone, Sensation intact, Cranial nerves 3-12 NL Psych/Mental Status: Mental status NL, Mood NL Labs/Xrays No labs and imaging were completed prior to admission patient did not have docu mented of the osteomyelitis but did has a prescription pad with the instructions on how to treat patient's current osteomyelitis that was reviewed Labs Test 01/22/25 11:56 Range/Units White Blood Count 3.9 L 4.4-10.8 10^3/uL Red Blood Count 4.45 L 4.5-5.90 10^6/uL Hemoglobin 13.9 13.5-17.5 g/dL Hematocrit 40.3 L 41.0-53.0 % Mean Corpuscular Volume 90.5 80.0-100.0 fL Mean Corpuscular Hemoglobin 31.3 28.0-32.0 pg Mean Corpuscular Hemoglobin Concent 34.6 32.0-36.0 g/dL Red Cell Distribution Width 13.9 11.8-14.3 % Platelet Count 199 140-450 10^3/uL Mean Platelet Volume 8.2 6.9-10.8 fL Neutrophils (%) (Auto) 63.1 37.0-80.0 % Lymphocytes (%) (Auto) 27.1 10.0-50.0 % Monocytes (%) (Auto) 6.9 0.0-12.0 % Eosinophils (%) (Auto) 2.0 0.0-7.0 % Basophils (%) (Auto) 0.9 0.0-2.0 % Neutrophils # (Auto) 2.5 1.6-8.6 10 ^3/uL Lymphocytes # (Auto) 1.1 0.4-5.4 10 ^3/uL Monocytes # (Auto) 0.3 0-1.3 10 ^3/uL Eosinophils # (Auto) 0.1 0-0.8 10 ^3/uL Basophils # (Auto) 0 0-0.2 10 ^3/uL Nucleated Red Blood Cells 0.2 % Sodium Level 144 136-145 mmol/L Potassium Level 3.9 3.5-5.1 mmol/L Chloride Level 111 H 98-107 mmol/L Carbon Dioxide Level 25 20-31 mmol/L Anion Gap 8 5-15 Blood Urea Nitrogen 12 9-23 mg/dL Creatinine 0.90 0.700-1.30 mg/dL Glomerular Filtration Rate Calc 99 >90 mL/min BUN/Creatinine Ratio 13.3 10.0-20.0 Serum Glucose 92 74-106 mg/dL Lactic Acid Level 0.9 0.4-2.0 mmol/L Calcium Level 8.9 8.7-10.4 mg/dL SEPSIS Sepsis Screen Date sepsis recognized/suspect: Jan 22, 2025 Time Sepsis recognized/suspect: 949 Recent Procedure: No On Antibiotic Therapy: No Respiratory Rate >20: No Heart Rate >90: No Temp<36 C (96.8 F) or >38.3 C: No SBP <90 or MAP <65 mmHG: No New Acute Mental Status Change: No Is the patient on CPAP, BIPAP,: No Physician Orders Blood Culture (01/22/25 11:21) Admit (01/22/25 13:58) Allergies (01/22/25:58) Code Status (01/22/25:58) Sodium Chloride 0.9% (01/22/25 14:00) Oxygen Per Hour (01/22/25:58) Hydrocodone-Acet 5/325mg Tab ([place] 5/32 (01/22/25 14:00) Ondansetron Hcl (Zofran) (01/22/25 14:00) Docusate Sodium Capsule (Colace Capsule) (01/22/25 14:00) Enoxaparin Sodium (Lovenox) (01/23/25 10:00) Fall Risk Precautions In Place QSHIFT (01/22/25 13:58) Complete Blood Count (01/23/25 04:00) Comprehensive Metabolic Panel (01/23/25 04:00) Condition: Stable (01/22/25:58) BRP (01/22/25:58) Nitroglycerin Sublingual (Ntrostat Subli (01/22/25 14:00) Stat Ekg For Chest Pain (01/22/25:58) Notify Of Changes From Base (01/22/25 13:58) Needle Loom Operator For 24 Hours (01/22/25 13:58) Emergency Dysrhythmia Protocol (01/22/25:58) Rhythm Strips Once Every Shift (01/22/25:58) Oxygen By Nasal Cannula (8/10/25 13:58) Ceftriaxone 2gm/50ml D5w (Rocephin 2gm/5 (01/23/25 10:00) Daptomycin 6mg/Kg Per Pharmacy (01/22/25 14:00) * Picc Line Consult (01/22/25 13:58) Home Health Nursing (01/22/25 13:58) * Lever Tender Consult (01/22/25 ) Daptomycin (Cubicin) (01/22/25 15:00) Creatine Kinase (01/23/25 04:00) Vital Signs Date Time Temp Pulse Resp B/P (MAP) Pulse Ox O2 Delivery O2 Flow Rate FiO2 01/22/25 12:28 97.6 57 14 120/76 (91) 94 97.6 01/22/25 09:47 97.7 64 16 113/72 96 97.7 Laboratory Tests Test 01/22/25 11:56 Lactic Acid Level 0.9 mmol/L (0.4-2.0) White Blood Count 3.9 10^3/uL (4.4-10.8) L Medications Medications Dose Ordered Sig/Javier Route Start Time Stop Time Status Last Admin Dose Admin Acetaminophen/ Hydrocodone Bitart 1 tab Q4HP PRN PO 01/22/25 14:00 01/22/25 15:20 1 TAB Ceftriaxone Sodium/Dextrose 50 ml @ 50 mls/hr ONCE ONCE IV 01/22/25 14:00 01/22/25 14:59 DC 01/22/25 14:00 50 MLS/HR Sodium Chloride 1,000 ml @ 1,000 mls/hr Q1H ONCE IV 01/22/25 11:30 01/22/25 12:29 DC 01/22/25 11:30 1,000 MLS/HR Assessment/Plan Assessment/Plan 59 yr old male with Osteomyelitis of the left knee requiring IV antibiotic therapy and PICC line placement. acute Osteomyelitis of the left knee Admit to inpatient service Place PICC line for long-term IV access Start vancomycin and daptomycin per ID guidance Weekly CBC, CMP, ESR, CRP while on antibiotics Orthopedic surgery to follow if needed per ortho will need hardware removal if no improvement after 6 weeks Pain management with acetaminophen and opioids as needed Post-knee revision surgery Maintain knee immobilization for comfort Discharge planning Case management to coordinate outpatient antibiotic therapy Home health referral for PICC care and antibiotic administration CHRONIC PROBLEM LIST: History of left knee surgery and revisions Osteomyelitis FEN/PPx: Fluids: Maintain hydration Electrolytes: Monitor daily BMP Nutrition: Regular diet DVT Prophylaxis: lovenox GI Prophylaxis: Not indicated at this time Disposition: Admit for IV antibiotic initiation, PICC line placement, and knee stabilization. Discharge once clinically stable, outpatient antibiotic plan finalized, and home health arranged. Plan discussed with: Patient My Orders Orders - MARY RICH DNP Procedure Category Date Status Time Admit ADMIT 01/22/25 Transmitted 13:58 Allergies MICHELLE 01/22/25 In Process 13:58 Code Status CODE 01/22/25 Transmitted 13:58 Sodium Chloride 0.9% PHA 01/22/25 In Process 14:00 Oxygen Per Hour RT 01/22/25 Transmitted 13:58 Hydrocodone-Acet PHA 01/22/25 In Process 5/325mg Tab ([place] 14:00 Ondansetron Hcl PHA 01/22/25 In Process (Zofran) 14:00 Docusate Sodium PHA 01/22/25 In Process Capsule (Colace 14:00 Enoxaparin Sodium PHA 01/23/25 In Process (Lovenox) 10:00 Fall Risk Precautions MICHELLE 01/22/[address] 13:58 Complete Blood Count LAB 01/23/25 Verified 04:00 Comprehensive LAB 01/23/25 Verified Metabolic Panel 04:00 Condition: Stable MICHELLE 01/22/25 In Process 13:58 BRP MICHELLE 01/22/25 In Process 13:58 Nitroglycerin PHA 01/22/25 In Process Sublingual (Ntrostat 14:00 Stat Ekg For Chest MICHELLE 01/22/25 In Process Pain 13:58 Notify Of Changes MICHELLE 01/22/25 In Process From Base 13:58 Needle Loom Operator For MICHELLE 01/22/25 In Process 24 Hours 13:58 Emergency Dysrhythmia MICHELLE 01/22/25 In Process Protocol 13:58 Rhythm Strips Once MICHELLE 01/22/25 In Process Every Shift 13:58 Oxygen By Nasal RT 01/22/25 Transmitted Cannula 13:58 Ceftriaxone 2gm/50ml PHA 01/23/25 In Process D5w (Rocephin 2gm/5 10:00 Daptomycin 6mg/Kg Per PHA 01/22/25 In Process Pharmacy 14:00 * Picc Line Consult CONS 01/22/25 Transmitted 13:58 Home Health Nursing REFER 01/22/25 Transmitted 13:58 * Lever Tender CONS 01/22/25 Transmitted Consult Daptomycin (Cubicin) PHA 01/22/25 In Process 15:00 Creatine Kinase LAB 01/23/25 Verified 04:00 Date of Service: Jan 22, 2025 Billing Provider: MARY RICH DNP Common Visit Codes: [id number] INP/OBS CARE (HIGH) MARY RICH DNP Jan 22, 2025 17:47
[2025-01-22] MEDS: DAPTOmycin 500 MG in SODIUM CHL 0.9% 50 ML IV SCH (20:27)
[2025-01-22] MEDS ORDERED: GABA-1250 PO (23:21)
[2025-01-22] MEDS ORDERED: PANT40TA2 PO (23:21)
[2025-01-22] MEDS ORDERED: HYDR-4798 PO (23:21)
[2025-01-22] MEDS ORDERED: LORA-622 PO (23:21)
[2025-01-23 01:00] VITALS: BP 116/65; PULSE 60; RESP 14; TEMP 97.9; O2SAT 97
[2025-01-23 05:00] VITALS: BP 129/71; PULSE 65; RESP 14; TEMP 97.9; O2SAT 97
[2025-01-23 06:52] LABS: Hematocrit 35.5 % (41.0-53.0); Hemoglobin 12.5 g/dL (13.5-17.5); Mean Corpuscular Hemoglobin 31.9 pg (28.0-32.0); Mean Corpuscular Volume 90.9 fL (80.0-100.0); Nucleated Red Blood Cells % 0.1 %
[2025-01-23 07:11] LABS: Albumin 3.6 g/dL (3.2-4.8); Alkaline Phosphatase 57 U/L (46-116); Anion Gap 10 (5-15); BUN/Creatinine Ratio 17.6 (10.0-20.0); Bilirubin, Total 0.6 mg/dL (0.2-1.0); Blood Urea Nitrogen 12 mg/dL (9-23); Carbon Dioxide 24 mmol/L (20-31); Glucose 79 mg/dL (74-106); Potassium 3.7 mmol/L (3.5-5.1); Sodium 145 mmol/L (136-145)
[2025-01-23 07:13] LABS: Alanine Aminotransferase < 9 U/L (7-40); Calcium 8.3 mg/dL (8.7-10.4); Chloride 111 mmol/L (98-107); Total Protein 5.5 g/dL (5.7-8.2)
[2025-01-23 08:00] VITALS: PULSE 18; RESP 18; O2SAT 97
[2025-01-23 08:50] VITALS: BP 123/81; PULSE 47; RESP 16; TEMP 97.9; O2SAT 97
[2025-01-23] MEDS: cefTRIAXone 2GM/50ML D5W 50 ML IV SCH (09:10)
[2025-01-23] MEDS: ENOXAPARIN SOD 40 MG/0.4 ML SYRINGE SC SCH (09:10)
[2025-01-23 09:31] LABS: INR 1.03 (0.9-1.15); Partial Thromboplastin Time 25.8 SEC (24.5-34.5); Prothrombin Time 10.9 sec (9.3-11.8)
[2025-01-23 13:00] VITALS: BP 116/71; PULSE 52; RESP 18; TEMP 97.9; O2SAT 98
--- NOTE | 2025-01-23 13:14 | DVH ---
Exam: US LEFT LOWER EXTREMITY ULTRASOUN Date: 01/23/2025 12:36 PM Clinical History: Assess for left knee effusion Comparison: None Findings: Targeted sonographic evaluation of the soft tissues of the left knee was obtained utilizing grayscale and color Doppler imaging. Small left joint effusion. IMPRESSION: Small left joint effusion. Diffuse edema. END IMPRESSION:
[2025-01-23] MEDS ORDERED: VANCOMYCIN PER PHARMACY 0 MG IV SCH (14:00)
--- NOTE | 2025-01-23 14:08 | DVHPN2 ---
Subjective Patient reports having severe pain to left knee Reviewed: Care Plan, H&P, Labs, Medications Changes from previous H/P or p: No Changes General: Per HPI Eyes: No Pain, No Vision change, No Conjunctivae inflammation, No Eyelid inflammation, No Other, No Redness ENT: No Ear pain, No Ear discharge, No Nose pain, No Nose discharge, No Nose congestion, No Mouth pain, No Mouth swelling, No Throat pain, No Throat swelling, No Other Cardiovascular: No Chest Pain, No Palpitations, No Orthopnea, No Paroxysmal Noc. Dyspnea, No Edema, No Lt Headedness, No Other Respiratory: No Cough, No Dry, No Shortness of breath, No SOB with excertion, No Wheezing, No Hemoptysis, No Pleuritic Pain, No Sputum, No Other Gastrointestinal: No Nausea, No Vomiting, No Abdominal Pain, No Diarrhea, No Constipation, No Melena, No Hematochezia, No Other Genitourinary: No Dysuria, No Frequency, No Incontinence, No Hematuria, No Retention, No Other Musculoskeletal: other (Knee pain); No neck pain, No shoulder pain, No arm pain, No back pain, No hand pain, No leg pain, No foot pain Skin: No Rash, No Lesions, No Jaundice, No Bruising, No Other Objective Vitals Vital Signs Date Time Temp Pulse Resp B/P (MAP) Pulse Ox O2 Delivery O2 Flow Rate FiO2 01/23/25 08:50 97.9 47 16 123/81 (95) 97 97.9 01/23/25 08:00 Room Air* 0 21 Intake/Output Intake and Output 01/23/25 07:00 Intake Total 100 ml Balance 100 ml Intake Oral 100 ml General Appearance: Alert, Oriented X3 HEENT: Atraumatic, PERRLA Cardiovascular: Normal S1, Normal S2 Musculoskeletal: Normal sensory function, Normal motor function Skin: Dry, Intact Psych/Mental Status: Mental status NL, Mood NL Medications Current Medications Medications Dose Ordered Sig/Javier Route Start Time Stop Time Status Last Admin Dose Admin Sodium Chloride 1,000 ml @ 70 mls/hr [id number] IV 01/22/25 14:00 01/23/25 05:19 70 MLS/HR Acetaminophen/ Hydrocodone Bitart 1 tab Q4HP PRN PO 01/22/25 14:00 01/23/25 08:39 1 TAB Ondansetron HCl 4 mg Q4HP PRN IV 01/22/25 14:00 Docusate Sodium 100 mg BIDPRN PRN PO 01/22/25 14:00 Enoxaparin Sodium 40 mg DAILY SC 01/23/25 10:00 01/23/25 09:10 40 MG Nitroglycerin 0.4 mg Q5MINP PRN SL 01/22/25 14:00 Ceftriaxone Sodium/Dextrose 50 ml @ 50 mls/hr DAILY IV 01/23/25 10:00 01/23/25 09:10 50 MLS/HR Daptomycin 0 ml @ 0 mls/hr PER PHARMACY IV 01/22/25 14:00 Daptomycin 500 mg/ Sodium Chloride 50 ml @ 100 mls/hr DAILY@1500 IV 01/22/25 15:00 Laboratory Results Laboratory Tests 01/23/25 06:07 Chemistry Test 01/23/25 06:07 Albumin 3.6 g/dL (3.2-4.8) Calcium Level 8.3 mg/dL (8.7-10.4) L Total Protein 5.5 g/dL (5.7-8.2) L Coagulation Test 01/23/25 06:07 Prothrombin Time 10.9 sec (9.3-11.8) Prothrombin Time INR 1.03 (0.9-1.15) Activated Partial Thromboplast Time 25.8 SEC (24.5-34.5) LFT Test 01/23/25 06:07 Alanine Aminotransferase (ALT) < 9 U/L (7-40) Alkaline Phosphatase 57 U/L (46-116) Aspartate Amino Transferase (AST) 13 U/L (13-40) Total Bilirubin 0.6 mg/dL (0.2-1.0) Microbiology Microbiology Date/Time Source Procedure Growth Status 01/22/25 11:56 Blood Blood Culture - Preliminary NO GROWTH AFTER 24 HOURS OF INCUBATION. Resulted Labs and/or images reviewed: Labs reviewed by me, Image(s) reviewed by me Assessment/Plan Assessment/Plan Impression: -rule out left septic prosthetic knee joint -degenerative joint disease Plan: -check ESR, CRP -continue antibiotic therapy with Rocephin and daptomycin -ortho consultation -ultrasound of the left knee -CT scan of the left lower extremity -pain management Total time spent with patient discussing and formulating plan of care: 35 minutes. This medical document was created using an electronic medical record system with [employer] dictation system. Although this document has been carefully reviewed, there may still be some phonetic and typographical errors. These areas are purely typographical due to imperfections of the software programs, and do not reflect any compromise in the patient's medical care. Plan discussed with: Patient, Other (RN) My Orders Orders - SO BANDA NP Procedure Category Date Status Time Left Lower Extremity US 01/23/25 Resulted Ultrasoun 12:27 Regular Diet DIET 01/23/25 Transmitted Lunch Erythrocyte LAB 01/23/25 Logged Sedimentation Rate 13:16 C-Reactive Protein LAB 01/23/25 Verified 13:53 Vancomycin Per PHA 01/23/25 Verified Pharmacy 14:00 Ct L Knee Wo Contrast CT 01/23/25 Verified 13:53 Date of Service: Jan 23, 2025 Billing Provider: SO BANDA NP Common Visit Codes: [id number] INP/OBS CARE(HIGH) SO BANDA NP Jan 23, 2025 14:08
--- NOTE | 2025-01-23 15:49 | DVH ---
EXAM: CT CT L KNEE WO CONTRAST HISTORY: septic knee joint COMPARISON: No comparison studies are available. TECHNIQUE: Noncontrast axial CT images of the left knee were performed. Sagittal and coronal reformat tanvi images were obtained. This CT exam was performed using one or more of the following dose reductio n techniques: Automated exposure control, adjustment of the mA and/or kv according to patient size, o r the use of iterative reconstruction techniques. Radiation Dose Information: CTDI volume is 9.86 mGy . Dose-length product is 1.84 mGy*cm FINDINGS/IMPRESSION: 1. Left total knee arthroplasty without evidence of periprosthetic fracture or loosening. There is a long femoral stem, not fully imaged here. 2. Moderate joint effusion accumulates in the suprapatellar pouch. If there is high clinical suspicio n for septic arthritis, recommend ultrasound-guided joint aspiration with follow-up culture and sensi tivity.
[2025-01-23 21:00] VITALS: BP 116/73; PULSE 52; RESP 18; TEMP 98.3; O2SAT 98
[2025-01-23] MEDS: DOCUSATE SOD 100 MG CAP PO PRN (22:50)
[2025-01-23] MEDS: PANTOPRAZOLE 40 MG/10 ML VIAL INJ IV SCH (22:50)
[2025-01-24] VITALS (7 sets, daily range): BP systolic 103–135; BP diastolic 60–89; PULSE 48–82; RESP 16–20; TEMP 97.9–98.5; O2SAT 95–98
--- NOTE | 2025-01-24 09:57 | DVH ---
hick PROCEDURE: Arthrocentesis Procedural Personnel Attending physician(s): Tristin Mantilla Fellow physician(s): None Resident physician(s): None Advanced practice provider(s): None Pre-procedure diagnosis: Left knee pain Post-procedure diagnosis: Same Indication: Suspected infection Additional clinical history: None Complications: No immediate complications. IMPRESSION: Image-guided diagnostic left knee arthrocentesis, yielding 30 mL of thick serous fluid. Plan: The patient tolerated the procedure well. Fluid analysis pending. PROCEDURE SUMMARY: - Left knee arthrocentesis with ultrasound guidance - Additional procedure(s): None PROCEDURE DETAILS: Pre-procedure Consent: Informed consent for the procedure including risks, benefits and alternatives was obtained a nd time-out was performed prior to the procedure. Preparation: The site was prepared and draped using maximal sterile barrier technique including cutan eous antisepsis. Anesthesia/sedation Level of anesthesia/sedation: No sedation Anesthesia/sedation administered by: Not applicable Total intra-service sedation time (minutes): Not applicable. Arthrocentesis The patient was positioned supine . Local anesthesia was administered. Under image guidance, a needle was advanced into the joint space, with intra-articular position confirmed by direct visualization . Aspiration was performed. Needle: 18 gauge, 3 cm Fluid volume aspirated (ml): 30 Fluid appearance: serous Contrast administered: None Joint lavage: Yes Closure The needle was removed and hemostasis was achieved with manual compression. A sterile bandage was anusha lied. Radiation Dose NA Additional Details Additional description of procedure: None Registry event: V /3 /g Device used: None Equipment details: None Unique Device Identifiers: Not available Specimens removed: None Estimated blood loss (mL): Less than 10 Standardized report: [email or web address] Attestation Signer name: Tristin Mantilla I attest that I was present for the entire procedure . I reviewed the stored images and agree with e report as written.
--- NOTE | 2025-01-24 10:53 | DVHPN2 ---
Subjective Patient reports that his pain in his knee improved. Reviewed: Care Plan, H&P, Labs, Medications Changes from previous H/P or p: Changes General: Per HPI Eyes: No Pain, No Vision change, No Conjunctivae inflammation, No Eyelid inflammation, No Other, No Redness ENT: No Ear pain, No Ear discharge, No Nose pain, No Nose discharge, No Nose congestion, No Mouth pain, No Mouth swelling, No Throat pain, No Throat swelling, No Other Cardiovascular: No Chest Pain, No Palpitations, No Orthopnea, No Paroxysmal Noc. Dyspnea, No Edema, No Lt Headedness, No Other Respiratory: No Cough, No Dry, No Shortness of breath, No SOB with excertion, No Wheezing, No Hemoptysis, No Pleuritic Pain, No Sputum, No Other Gastrointestinal: No Nausea, No Vomiting, No Abdominal Pain, No Diarrhea, No Constipation, No Melena, No Hematochezia, No Other Genitourinary: No Dysuria, No Frequency, No Incontinence, No Hematuria, No Retention, No Other Musculoskeletal: other (Knee pain); No neck pain, No shoulder pain, No arm pain, No back pain, No hand pain, No leg pain, No foot pain Skin: No Rash, No Lesions, No Jaundice, No Bruising, No Other Objective Vitals Vital Signs Date Time Temp Pulse Resp B/P (MAP) Pulse Ox O2 Delivery O2 Flow Rate FiO2 01/24/25 09:00 98.5 51 18 108/79 (89) 97 98.5 01/23/25 20:00 Room Air* 0 21 Intake/Output Intake and Output 01/24/25 07:00 Intake Total 1150 ml Output Total 2600 ml Balance -1450 ml Intake Oral 1100 ml IV Total 50 ml Output Urine Total 2600 ml # Voids 4 General Appearance: Alert, Oriented X3 HEENT: Atraumatic, PERRLA Cardiovascular: Normal S1, Normal S2 Musculoskeletal: Normal sensory function, Normal motor function Neuro: Cranial nerves 3-12 NL, Reflexes 2+ Skin: Dry, Intact Psych/Mental Status: Mental status NL, Mood NL Medications Current Medications Medications Dose Ordered Sig/Javier Route Start Time Stop Time Status Last Admin Dose Admin Sodium Chloride 1,000 ml @ 70 mls/hr [id number] IV 01/22/25 14:00 01/24/25 08:54 70 MLS/HR Acetaminophen/ Hydrocodone Bitart 1 tab Q4HP PRN PO 01/22/25 14:00 01/23/25 22:51 1 TAB Ondansetron HCl 4 mg Q4HP PRN IV 01/22/25 14:00 Docusate Sodium 100 mg BIDPRN PRN PO 01/22/25 14:00 01/23/25 22:50 100 MG Enoxaparin Sodium 40 mg DAILY SC 01/23/25 10:00 01/23/25 09:10 40 MG Nitroglycerin 0.4 mg Q5MINP PRN SL 01/22/25 14:00 Ceftriaxone Sodium/Dextrose 50 ml @ 50 mls/hr DAILY IV 01/23/25 10:00 01/23/25 09:10 50 MLS/HR Daptomycin 0 ml @ 0 mls/hr PER PHARMACY IV 01/22/25 14:00 Daptomycin 500 mg/ Sodium Chloride 50 ml @ 100 mls/hr DAILY@1500 IV 01/22/25 15:00 01/23/25 17:05 100 MLS/HR Pantoprazole Sodium 40 mg DAILY IV 01/23/25 22:00 01/23/25 22:50 40 MG Laboratory Results Laboratory Tests 01/23/25 06:07 Microbiology Microbiology Date/Time Source Procedure Growth Status 01/22/25 11:56 Blood Blood Culture - Preliminary NO GROWTH AFTER 24 HOURS OF INCUBATION. Resulted Labs and/or images reviewed: Labs reviewed by me, Image(s) reviewed by me Assessment/Plan Assessment/Plan Impression: -rule out left septic prosthetic knee joint -degenerative joint disease Plan: Events: ESR, CRP, CPK all within normal limits. White blood cell count normal. CT scan of the knee reveals swelling. Patient had joint effusion aspiration, noted 30 mL of what appears to be infected synovial fluid. Discussed with patient and , using appropriate hospital mortuary operations manager. -continue antibiotic therapy with Rocephin and daptomycin -ortho consultation -ultrasound of the left knee -pain management Total time spent with patient discussing and formulating plan of care: 35 minutes. This medical document was created using an electronic medical record system with [employer] system. Although this document has been carefully reviewed, there may still be some phonetic and typographical errors. These areas are purely typographical due to imperfections of the software programs, and do not reflect any compromise in the patient's medical care. Plan discussed with: Patient, Other (RN) My Orders Orders - SO BANDA NP Procedure Category Date Status Time Left Lower Extremity US 01/23/25 Resulted Ultrasoun 12:27 Regular Diet DIET 01/23/[address] L Knee Wo Contrast CT 01/23/25 Resulted 13:53 * Radiologist Consult CONS 01/24/25 Transmitted 08:18 *Consult Dr. Knight CONS 01/24/25 Transmitted Amanda 08:19 Schedule For Dc MICHELLE 01/24/25 In Process Clinic F/U 10:00 Date of Service: Jan 24, 2025 Billing Provider: SO BADNA NP Common Visit Codes: [id number] INP/OBS CARE(HIGH) SO BANDA NP Jan 24, 2025 10:53
[2025-01-25 01:00] VITALS: BP 126/73; PULSE 53; RESP 18; TEMP 98.4; O2SAT 97
[2025-01-25 04:57] VITALS: BP 119/69; PULSE 54; RESP 17; TEMP 98.3; O2SAT 97
[2025-01-25 09:00] VITALS: BP 119/75; PULSE 46; RESP 18; TEMP 97.7; O2SAT 95
[2025-01-25 13:00] VITALS: BP 112/76; PULSE 53; RESP 78; TEMP 97.8; O2SAT 97
--- NOTE | 2025-01-25 13:26 | DVHPN2 ---
Subjective Patient reports that his pain in his knee improved. Reviewed: Care Plan, H&P, Labs, Medications Changes from previous H/P or p: No Changes General: Per HPI Eyes: No Pain, No Vision change, No Conjunctivae inflammation, No Eyelid inflammation, No Other, No Redness ENT: No Ear pain, No Ear discharge, No Nose pain, No Nose discharge, No Nose congestion, No Mouth pain, No Mouth swelling, No Throat pain, No Throat swelling, No Other Cardiovascular: No Chest Pain, No Palpitations, No Orthopnea, No Paroxysmal Noc. Dyspnea, No Edema, No Lt Headedness, No Other Respiratory: No Cough, No Dry, No Shortness of breath, No SOB with excertion, No Wheezing, No Hemoptysis, No Pleuritic Pain, No Sputum, No Other Gastrointestinal: No Nausea, No Vomiting, No Abdominal Pain, No Diarrhea, No Constipation, No Melena, No Hematochezia, No Other Genitourinary: No Dysuria, No Frequency, No Incontinence, No Hematuria, No Retention, No Other Musculoskeletal: other (Knee pain); No neck pain, No shoulder pain, No arm pain, No back pain, No hand pain, No leg pain, No foot pain Skin: No Rash, No Lesions, No Jaundice, No Bruising, No Other Objective Vitals Vital Signs Date Time Temp Pulse Resp B/P (MAP) Pulse Ox O2 Delivery O2 Flow Rate FiO2 01/25/25 09:00 97.7 46 18 119/75 (90) 95 97.7 01/25/25 08:00 Room Air* 0 21 Intake/Output Intake and Output 01/25/25 07:00 Intake Total 3840 ml Output Total 1825 ml Balance 2015 ml Intake Oral 2840 ml IV Total 1000 ml Output Urine Total 1825 ml # Bowel Movements 1 General Appearance: Alert, Oriented X3 HEENT: Atraumatic, PERRLA Cardiovascular: Normal S1, Normal S2 Musculoskeletal: Normal sensory function, Normal motor function Neuro: Cranial nerves 3-12 NL, Reflexes 2+ Skin: Dry, Intact Psych/Mental Status: Mental status NL, Mood NL Medications Current Medications Medications Dose Ordered Sig/Javier Route Start Time Stop Time Status Last Admin Dose Admin Sodium Chloride 1,000 ml @ 70 mls/hr [id number] IV 01/22/25 14:00 01/24/25 23:24 70 MLS/HR Acetaminophen/ Hydrocodone Bitart 1 tab Q4HP PRN PO 01/22/25 14:00 01/24/25 23:10 1 TAB Ondansetron HCl 4 mg Q4HP PRN IV 01/22/25 14:00 Docusate Sodium 100 mg BIDPRN PRN PO 01/22/25 14:00 01/24/25 21:33 100 MG Enoxaparin Sodium 40 mg DAILY SC 01/23/25 10:00 01/25/25 09:31 40 MG Nitroglycerin 0.4 mg Q5MINP PRN SL 01/22/25 14:00 Ceftriaxone Sodium/Dextrose 50 ml @ 50 mls/hr DAILY IV 01/23/25 10:00 01/25/25 09:31 50 MLS/HR Daptomycin 0 ml @ 0 mls/hr PER PHARMACY IV 01/22/25 14:00 Daptomycin 500 mg/ Sodium Chloride 50 ml @ 100 mls/hr DAILY@1500 IV 01/22/25 15:00 01/24/25 14:57 100 MLS/HR Pantoprazole Sodium 40 mg DAILY IV 01/23/25 22:00 01/25/25 09:31 40 MG Laboratory Results Laboratory Tests 01/23/25 06:07 Microbiology Microbiology Date/Time Source Procedure Growth Status 01/24/25 09:30 Aspirate Gram Stain - Final Resulted 01/24/25 09:30 Aspirate Body Fluid Culture - Preliminary Resulted 01/22/25 11:56 Blood Blood Culture - Preliminary NO GROWTH AFTER 72 HOURS OF INCUBATION. Resulted Labs and/or images reviewed: Labs reviewed by me, Image(s) reviewed by me Assessment/Plan Assessment/Plan Impression: -rule out left septic prosthetic knee joint -degenerative joint disease Plan: Events: Knee aspirate fluid culture pending. No growth noted today. Long discussion made with patient, spouse, nurse and Dr. Pollack (ID) regarding current plan of care. Hold PICC line until cultures are obtained. Awaiting ortho consult. -continue antibiotic therapy with Rocephin and daptomycin -ortho consultation -ultrasound of the left knee -pain management Total time spent with patient discussing and formulating plan of care: 35 minutes. This medical document was created using an electronic medical record system with [employer] dictation system. Although this document has been carefully reviewed, there may still be some phonetic and typographical errors. These areas are purely typographical due to imperfections of the software programs, and do not reflect any compromise in the patient's medical care. Plan discussed with: Patient, Spouse, Other (RN) Date of Service: Jan 25, 2025 Billing Provider: SO BANDA NP Common Visit Codes: [id number] INP/OBS CARE(HIGH) SO BANDA NP Jan 25, 2025 13:26
[2025-01-25 17:00] VITALS: BP 110/76; PULSE 50; RESP 18; TEMP 97.9; O2SAT 96
--- NOTE | 2025-01-25 18:08 | DVHINCON2 ---
Consult Note Consult Consult Note Reason for Consult: Evaluation of left knee pain, history of multiple surgeries, possible osteomyelitis --- History of Present Illness: Mr. Anibal Mccartney was admitted through the Emergency Department at the recommendation of his primary care physician and infectious disease specialist for PICC line placement and initiation of IV antibiotics for suspected osteomyelitis of the left knee, Hx of Left knee TKA and a revision. He has a history of prior surgeries on the left knee, including a second procedure (Left knee TKA revision) performed by Dr. Patel on January 25, 2024. The patient continues to experience chronic left knee pain for past 8 to 10 month post surgery. No new chnages or worsening of left knee pain reported by patient. Per previous note review , Per the patients , a recent bone scan confirmed osteomyelitis; however, on my review of record there is no MRI available in the system for review. On interview today, the patient reports 810 months of persistent left knee pain without recent worsening. He notes mild swelling and erythema of the knee. Pain is present with weight-bearing but has been chronic. --- Pertinent Review of Records: Recent Knee Aspiration while inpatient at [facility] : No evidence of septic arthritis; gram stain negative. Blood Cultures: Negative at 72 hours. ESR: 3 mm/hr. Peripheral WBC: Within normal limits. Other Symptoms: Denies fever, chills. --- Physical Examination: Inspection: Mild swelling, minimal warmth, diffuse tenderness to palpation. Erythema: Present but mild. Range of Motion: 0 to 115 with mild pain. Neurovascular: Intact distally. Pain: No pain out of proportion to exam findings. CT LEFT KNEE: 1. Left total knee arthroplasty without evidence of periprosthetic fracture or loosening. There is a long femoral stem, not fully imaged here. 2. Moderate joint effusion accumulates in the suprapatellar pouch. If there is high clinical suspicion for septic arthritis, recommend ultrasound-guided joint aspiration with follow-up culture and sensitivity. --- Assessment: Chronic left knee pain, history of multiple surgeries. No current clinical or synovial fluid evidence of septic arthritis. Laboratory studies are not consistent with acute infection at this time. MRI with metal artifact reduction is indicated for better assessment of osteomyelitis, as CT is not appropriate for diagnosis in this setting. --- Plan: Case and labs discussed with Dr. Patel , His recs: 1. Continue physical therapy 2. Proceed with treatment plan per Infectious Disease service 3. Order metal artifact reduction MRI of the left knee for further evaluation of possible osteomyelitis. 4. Outpatient follow-up with Orthopedic Surgery clinic unless Metal suppresion MRI can be completed as inpatient. 5. Re-evaluation by Orthopedic Surgery if new imaging or clinical findings suggest acute or progressive pathology. --- Discussion: Case discussed with Dr. Patel. Agreement with current conservative orthopedic management. Will defer to Infectious Disease for antimicrobial therapy. Orthopedic re-examination will be arranged if new information becomes available. Plan discussed with: Patient, Other (bedside Nurse) Visit Coding Surgery Date of Service if different f: Jan 25, 2025 Billing Provider: JARVIS THORPE Surgery Visit Codes: 32916 - INP CONSULT <55 MIN JARVIS THORPE Jan 25, 2025 18:08
[2025-01-25 21:00] VITALS: BP 126/87; PULSE 51; RESP 20; TEMP 97.9; O2SAT 97
[2025-01-26 01:00] VITALS: BP 121/67; PULSE 52; RESP 18; TEMP 98; O2SAT 95
[2025-01-26 05:00] VITALS: BP 112/69; PULSE 51; RESP 20; TEMP 97.8; O2SAT 98
[2025-01-26 09:00] VITALS: BP 116/75; PULSE 49; RESP 17; TEMP 97.6; O2SAT 97
[2025-01-26 12:47] VITALS: BP 124/79; PULSE 54; RESP 16; TEMP 98; O2SAT 97
--- NOTE | 2025-01-26 15:33 | DVHDS2 ---
Discharge Summary Date of Admission Jan 22, 2025 at 13:58 Date of Discharge: Jan 24, 2025 Admitting Diagnosis Acute osteomyelitis of left knee Labs/Diagnostic Data: Laboratory Results Test 01/24/25 09:30 01/23/25 06:07 01/22/25 11:56 Body Fluid Source Joint fluid Body Fluid pH 9.0 Body Fluid WBC (Manual) 210 CUMM (0-200) Body Fluid RBC (Manual) 5600 CUMM (0-2000) Body Fluid Mononuclear Cells 95 % Body Fluid Polymorphonuclear Cells 5 % (0-25) Body Fluid Glucose 56 mg/dL (.) White Blood Count 4.3 10^3/uL (4.4-10.8) Red Blood Count 3.91 10^6/uL (4.5-5.90) Hemoglobin 12.5 g/dL (13.5-17.5) Hematocrit 35.5 % (41.0-53.0) Mean Corpuscular Volume 90.9 fL (80.0-100.0) Mean Corpuscular Hemoglobin 31.9 pg (28.0-32.0) Mean Corpuscular Hemoglobin Concent 35.1 g/dL (32.0-36.0) Red Cell Distribution Width 13.5 % (11.8-14.3) Platelet Count 165 10^3/uL (140-450) Mean Platelet Volume 8.2 fL (6.9-10.8) Neutrophils (%) (Auto) 55.8 % (37.0-80.0) Lymphocytes (%) (Auto) 31.8 % (10.0-50.0) Monocytes (%) (Auto) 8.8 % (0.0-12.0) Eosinophils (%) (Auto) 2.9 % (0.0-7.0) Basophils (%) (Auto) 0.7 % (0.0-2.0) Neutrophils # (Auto) 2.4 10 ^3/uL (1.6-8.6) Lymphocytes # (Auto) 1.4 10 ^3/uL (0.4-5.4) Monocytes # (Auto) 0.4 10 ^3/uL (0-1.3) Eosinophils # (Auto) 0.1 10 ^3/uL (0-0.8) Basophils # (Auto) 0 10 ^3/uL (0-0.2) Nucleated Red Blood Cells 0.1 % Erythrocyte Sedimentation Rate 3 mm/hr (0-20) Prothrombin Time 10.9 sec (9.3-11.8) Prothrombin Time INR 1.03 (0.9-1.15) Activated Partial Thromboplast Time 25.8 SEC (24.5-34.5) Sodium Level 145 mmol/L (136-145) Potassium Level 3.7 mmol/L (3.5-5.1) Chloride Level 111 mmol/L (98-107) Carbon Dioxide Level 24 mmol/L (20-31) Anion Gap 10 (5-15) Blood Urea Nitrogen 12 mg/dL (9-23) Creatinine 0.68 mg/dL (0.700-1.30) Glomerular Filtration Rate Calc 108 mL/min (>90) BUN/Creatinine Ratio 17.6 (10.0-20.0) Serum Glucose 79 mg/dL (74-106) Calcium Level 8.3 mg/dL (8.7-10.4) Total Bilirubin 0.6 mg/dL (0.2-1.0) Aspartate Amino Transferase (AST) 13 U/L (13-40) Alanine Aminotransferase (ALT) < 9 U/L (7-40) Alkaline Phosphatase 57 U/L (46-116) Creatine Kinase 93 U/L (46-171) C-Reactive Protein High Sensitivity 0.11 mg/dL (<1.0) Total Protein 5.5 g/dL (5.7-8.2) Albumin 3.6 g/dL (3.2-4.8) Lactic Acid Level 0.9 mmol/L (0.4-2.0) Other Laboratory Tests 01/23/25 06:07 Brief Hx & Hospital Course: History of Present Illness 59-year-old male with past medical history significant for prior knee surgery and repair presents to the ED with his , carrying a note from his primary care physician, Dr. Pollack, requesting PICC line placement and initiation of IV antibiotics for osteomyelitis of the left knee. The patient has had two prior surgeries on the knee, including a revision by Dr. Inman in january 25, 2024 most recent one per , Despite these interventions, he continues to have knee pain. A recent bone scan confirmed osteomyelitis of the left knee. His primary physician recommended initiation of IV antibiotics specifically vancomycin and daptomycin with weekly laboratory monitoring during treatment. It was also advised that if there is no improvement after six weeks of therapy, the patient may require another revision surgery with hardware removal. Currently, he reports medial and lateral knee pain, swelling, and decreased range of motion due to pain. Examination shows soft compartments, no erythema, and no warmth. In the ED, he was given normal saline. CBC, BMP, and lactate were unremarkable. His , Ruchi, provided much of the history and can be reached at [phone]. He will be admitted for initiation of IV antibiotics, PICC line placement, knee stabilization, and coordination of discharge planning with case management. Course of hospitalization: Reviewing documentation provided by patient's , apparently the patient's bone scan of the left knee was performed in October 2024. Patient was recently referred to infectious disease doctor for consultation who refer the patient to coming in the hospital with a prescription for PICC line placement lab work, as well as antibiotic course he would like the patient to be on. Assessment of the patient reveals left swollen knee without erythema, but very painful. Long discussion was made with the patient as well as regarding further workup given a septic knee joint from October would have worse presentation. Also patient would also require hospitalization for evaluation by orthopedic surgeon. Patient had CT scan of the left knee as well as ultrasound. Effusion was noted, for which interventional radiologist aspirated 30 mL. At this time CRP, ESR, CPK, white blood cell count were all within normal range. Patient is afebrile. Left knee aspirate has no growth at this time. Given the orthopedic consultation recommendation by ABRAHAM Massey states that the patient should be continued with IV antibiotics as requested by Infectious Disease, a PICC line will be placed and patient will be continued on IV Rocephin and IV daptomycin. Patient will follow up with Dr. Pollack, infectious disease doctor with labs including CBC, CPK, CMP being drawn weekly and sent to his office. Both the patient and are agreeable with discharge plan. All questions answered. Physical examination General: Alert and Oriented x3. No acute distress. Well-nourished. Eyes: EOMI. Anicteric. HENT: Moist mucous membranes. Lungs: Clear to auscultation bilaterally. No accessory muscle use. Cardiovascular: Regular rate and rhythm. No murmur. No JVD. Abdomen: Soft, non-tender and non-distended. No palpable masses. Extremities: No edema. Non-tender. Skin: No rashes or lesions. Warm. Neurologic: No focal neurological deficits. CN II-XII grossly intact, but not individually tested. Psychiatric: Cooperative. Appropriate mood and affect. Total time spent with patient discussing and formulating plan of care: 35 minutes. This medical document was created using an electronic medical record system with [employer] dictation system. Although this document has been carefully reviewed, there may still be some phonetic and typographical errors. These areas are purely typographical due to imperfections of the software programs, and do not reflect any compromise in the patient's medical care. Consults/Reason for consult Orthopedic surgeon: Questionable infected left knee prosthetic Condition at Discharge: Fair Final Diagnosis/Problems List Left knee prosthesis infection Secondary diagnosis: -degenerative joint disease Discharge Disposition: Home with Health Services Discharge Instruct/Medications Diet: Regular Activity: No Restrictions, As Tolerated Follow Up/Referral: Discharge Clinic in one week Medications: IV antibiotics: Daptomycin 6 milligrams/kilogram IV daily for six weeks. Rocephin 1 g IV daily for six weeks. Scheduled Loratadine (Claritin), 1 TAB PO DAILY, (Reported) Pantoprazole Sodium Sesquihydr (Protonix), 40 MG PO DAILY, (Reported) Miscellaneous Medications Gabapentin (Gabapentin), 300 MG PO, (Reported) Hydrocodone-Acetaminophen (Hydrocodone Bitartrate/AC 10-325 mg), 1 TAB PO, (Reported) 36 Discharge Statement: "Patient was advised to return to the ER or call 911 if any headaches, dizziness, shortness of breath, chest pain, abdominal pain, bleeding, fevers, or worsening of medical condition. Patient was counseled about treatment plan, medications, possible side effects, patientverbalized understanding. All questions were answered to the best of my ability. This discharge took greater then 30 minutes in planning, reviewing documentation, counseling the patient, and discussing with other team members." ASSESSMENT ASSESSMENT Assessment Left knee prosthesis infection Date of Service: Jan 26, 2025 Billing Provider: SO BANDA NP Common Visit Codes: 67650-NUM/OBS DISCH DAY >30min SO BANDA NP Jan 26, 2025 15:33
[2025-01-26] MEDS: LIDOCAINE 1% (LOCAL ANESTH.) PF 5ml SDV ID ONE (16:41)
[2025-01-26 16:51] VITALS: BP 118/76; PULSE 46; RESP 16; TEMP 97.7; O2SAT 97
[2025-01-26 21:00] VITALS: BP 127/84; PULSE 53; RESP 14; TEMP 97.8; O2SAT 96
[2025-01-26] MEDS: SODIUM CHLOR 0.9% PF (SALINE LOCK) 10ML VIAL/SYR IV SCH (21:28)
[2025-01-27 01:00] VITALS: BP 111/67; PULSE 53; RESP 16; TEMP 98; O2SAT 98
[2025-01-27 05:00] VITALS: BP 118/80; PULSE 48; RESP 16; TEMP 98.1; O2SAT 95
[2025-01-27 09:00] VITALS: BP 119/79; PULSE 52; RESP 16; TEMP 98; O2SAT 97
--- NOTE | 2025-01-27 09:41 | DVHPN2 ---
Subjective Patient reports that his pain in his knee improved. Reviewed: Care Plan, H&P, Labs, Medications Changes from previous H/P or p: No Changes General: Per HPI Eyes: No Pain, No Vision change, No Conjunctivae inflammation, No Eyelid inflammation, No Other, No Redness ENT: No Ear pain, No Ear discharge, No Nose pain, No Nose discharge, No Nose congestion, No Mouth pain, No Mouth swelling, No Throat pain, No Throat swelling, No Other Cardiovascular: No Chest Pain, No Palpitations, No Orthopnea, No Paroxysmal Noc. Dyspnea, No Edema, No Lt Headedness, No Other Respiratory: No Cough, No Dry, No Shortness of breath, No SOB with excertion, No Wheezing, No Hemoptysis, No Pleuritic Pain, No Sputum, No Other Gastrointestinal: No Nausea, No Vomiting, No Abdominal Pain, No Diarrhea, No Constipation, No Melena, No Hematochezia, No Other Genitourinary: No Dysuria, No Frequency, No Incontinence, No Hematuria, No Retention, No Other Musculoskeletal: other (Knee pain); No neck pain, No shoulder pain, No arm pain, No back pain, No hand pain, No leg pain, No foot pain Skin: No Rash, No Lesions, No Jaundice, No Bruising, No Other Objective Vitals Vital Signs Date Time Temp Pulse Resp B/P (MAP) Pulse Ox O2 Delivery O2 Flow Rate FiO2 01/27/25 05:00 98.1 48 16 118/80 (93) 95 98.1 01/26/25 20:00 Room Air* 0 21 Intake/Output Intake and Output 01/27/25 06:59 Intake Total 2350 ml Output Total 1300 ml Balance 1050 ml Intake Oral 2350 ml Output Urine Total 1300 ml # Voids 4 # Bowel Movements 2 General Appearance: Alert, Oriented X3 HEENT: Atraumatic, PERRLA Cardiovascular: Normal S1, Normal S2 Musculoskeletal: Normal sensory function, Normal motor function Neuro: Cranial nerves 3-12 NL, Reflexes 2+ Skin: Dry, Intact Psych/Mental Status: Mental status NL, Mood NL Medications Current Medications Medications Dose Ordered Sig/Javier Route Start Time Stop Time Status Last Admin Dose Admin Sodium Chloride 1,000 ml @ 70 mls/hr [id number] IV 01/22/25 14:00 01/26/25 03:46 70 MLS/HR Acetaminophen/ Hydrocodone Bitart 1 tab Q4HP PRN PO 01/22/25 14:00 01/26/25 21:35 1 TAB Ondansetron HCl 4 mg Q4HP PRN IV 01/22/25 14:00 Docusate Sodium 100 mg BIDPRN PRN PO 01/22/25 14:00 01/26/25 21:34 100 MG Enoxaparin Sodium 40 mg DAILY SC 01/23/25 10:00 01/27/25 09:28 40 MG Nitroglycerin 0.4 mg Q5MINP PRN SL 01/22/25 14:00 Ceftriaxone Sodium/Dextrose 50 ml @ 50 mls/hr DAILY IV 01/23/25 10:00 01/27/25 09:25 50 MLS/HR Daptomycin 0 ml @ 0 mls/hr PER PHARMACY IV 01/22/25 14:00 Daptomycin 500 mg/ Sodium Chloride 50 ml @ 100 mls/hr DAILY@1500 IV 01/22/25 15:00 01/26/25 18:05 100 MLS/HR Pantoprazole Sodium 40 mg DAILY IV 01/23/25 22:00 01/27/25 09:29 40 MG Sodium Chloride 10 ml QSHIFT@10,22 IV 01/26/25 22:00 01/27/25 09:29 10 ML Laboratory Results Laboratory Tests 01/23/25 06:07 Microbiology Microbiology Date/Time Source Procedure Growth Status 01/24/25 09:30 Aspirate Gram Stain - Final Resulted 01/24/25 09:30 Aspirate Body Fluid Culture - Preliminary Resulted 01/22/25 11:56 Blood Blood Culture - Preliminary NO GROWTH AFTER 72 HOURS OF INCUBATION. Resulted Labs and/or images reviewed: Labs reviewed by me, Image(s) reviewed by me Assessment/Plan Assessment/Plan Impression: -rule out left septic prosthetic knee joint -degenerative joint disease Plan: Events: Patient discharged yesterday. Awaiting for home health services to be established. -continue antibiotic therapy with Rocephin and daptomycin -ortho consultation -ultrasound of the left knee -pain management Total time spent with patient discussing and formulating plan of care: 35 minutes. This medical document was created using an electronic medical record system with [employer] system. Although this document has been carefully reviewed, there may still be some phonetic and typographical errors. These areas are purely typographical due to imperfections of the software programs, and do not reflect any compromise in the patient's medical care. Plan discussed with: Patient, Other (RN) My Orders Orders - SO BANDA NP Procedure Category Date Status Time * Local Coordinator CONS 01/26/25 Transmitted Consult * Picc Line Consult CONS 01/26/25 Transmitted 14:49 Ss Consult To Arrange [facility] 01/26/25 In Process Home Iv 14:49 Discharge DISCHARGE 01/26/25 Transmitted 14:57 Nursing Protocol Picc MICHELLE 01/26/25 In Process 16:33 Change Dressing Prn [facility] 01/26/25 In Process 16:33 Sodium Chloride Lock PHA 01/26/25 In Process (Saline Lock Ns) 22:00 Do Not Use Picc For [facility] 01/26/25 In Process Blood Cult 16:33 May Draw Blood From [facility] 01/26/25 In Process Picc 16:33 Ok To Use Picc [facility] 01/26/25 In Process 16:33 Change Picc Dressing [facility] 01/26/25 In Process Q7 Days 16:33 Date of Service: Jan 27, 2025 Billing Provider: SO BANDA NP Common Visit Codes: [id number] INP/OBS CARE(HIGH) Procedure Codes: [id number] W/O IMAGING SO BANDA NP Jan 27, 2025 09:41
[2025-01-27 11:06] VITALS: BP 119/79; PULSE 52; RESP 16; TEMP 98; O2SAT 97
== END 2025-01-27 12:16 | disposition home health service (06) | DRG 349 ==
LOC: ER 09:44 → OVERFLOW 13:58 → EAST 23:01
PROVIDERS: ADMIT Nurse Practitioner Acute Care; ATTEND Nurse Practitioner Acute Care
PROC: 0S9D3ZZ Drainage of Left Knee Joint, Percutaneous Approach (ICD-10-PCS; principal; 2025-01-24)
PROC: 02HV33Z Insertion of Infusion Device into Superior Vena Cava, Percutaneous Approach (ICD-10-PCS; 2025-01-26)
PROC: B548ZZA Ultrasonography of Superior Vena Cava, Guidance (ICD-10-PCS; 2025-01-26)
DX: T84.54XA Infection and inflammatory reaction due to internal left knee prosthesis, initial encounter (principal); G89.29 Other chronic pain; M17.12 Unilateral primary osteoarthritis, left knee; Z96.652 Presence of left artificial knee joint; Z90.49 Acquired absence of other specified parts of digestive tract; Z88.8 Allergy status to other drugs, medicaments and biological substances; Y83.8 Other surgical procedures as the cause of abnormal reaction of the patient, or of later complication, without mention of misadventure at the time of the procedure; Y92.89 Other specified places as the place of occurrence of the external cause
CPT/HCPCS: 20611; 36415; 36569; 73700; 76937; 76942; 80048; 80053; 82550; 83605; 83986; 85025; 85610; 85652; 85730; 86141; 87040; 87205; 89051; 93926; 96360; G0378; J2470

== ENCOUNTER 2025-02-23 10:51 | Inpatient (IN) | payer MEDICAID ==
[~2025-02-23] VITALS: Ht 175.3 cm; Wt 93.5 kg
[~2025-02-23 10:51] MED LIST changes: -ACET-1304 PO; -DICY10CA PO; -FAMO-161 PO; +GABA-1250 PO; +HYDR-4798 PO; +LORA-622 PO; +PANT40TA2 PO
[2025-02-23 11:52] LABS: Hematocrit 40.2 % (41.0-53.0); Hemoglobin 14.0 g/dL (13.5-17.5); Mean Corpuscular Hemoglobin 31.7 pg (28.0-32.0); Mean Corpuscular Volume 90.9 fL (80.0-100.0); Nucleated Red Blood Cells % 0.1 %
[2025-02-23 11:59] LABS: Potassium 4.1 mmol/L (3.5-5.1); Sodium 143 mmol/L (136-145)
[2025-02-23 12:00] LABS: Anion Gap 8 (5-15); Calcium 9.4 mg/dL (8.7-10.4); Carbon Dioxide 28 mmol/L (20-31)
[2025-02-23 12:01] LABS: Chloride 107 mmol/L (98-107)
[2025-02-23 12:05] LABS: BUN/Creatinine Ratio 11.0 (10.0-20.0); Blood Urea Nitrogen 10 mg/dL (9-23); Glucose 92 mg/dL (74-106)
--- NOTE | 2025-02-23 12:13 | DVH ---
XY CHEST PORTABLE, HISTORY: sob COMPARISON: CT CT CHEST/AB/PL W CON- IV ONLY on DOS: 11/05/24, XY CHEST TWO VIEWS ROUTINE on DOS: CT CT CHEST/AB/PL W CON- IV ONLY on DOS: 11/05/24, XY CHEST TWO VIEWS ROUTINE on DOS: 10/16/23 TECHNICAL DATA: 1 view of the chest was obtained. FINDINGS: Lines and tubes: A right arm PICC is seen with tip in the RA. Cardiomediastinal silhouette: normal Pulmonary vasculature: normal Lung expansion: normal Lung airspace: normal Lung interstitium: normal Pleura: normal Pneumothorax: no Bones: Unremarkable Other: no IMPRESSION: No acute intrathoracic abnormality.
--- NOTE | 2025-02-23 12:16 | ED.PDOC ---
History of Present Illness HPI Comments 59 y/o M, presents to the ED for CC of body pain. Patient states, he has been experiencing symptoms of shortness of breath with associated body-aches and headache onset, [id number]. Patient relays, that he was recently admitted to [facility] on 01/22/25 for Dx: acute osteomyelitis of the left knee and is unsure if symptoms maybe d/t new antibiotic medications. Patient denies rash, fever, chills, sweats, throat tightness or swelling. No other symptoms or modifying factors are present at this time. Chief Complaint: Body Pain Time Seen by MD: 12:00 Primary Care Provider: unknown Reviewed Notes: Nurses Notes, Medications, Allergies Allergies: Coded Allergies: Cortisone (Verified Allergy, Mild, 10/16/23) Home Meds Reported Medications Pantoprazole Sodium Sesquihydr (Protonix) 40 Mg Tab, 40 MG PO DAILY, #30 TAB 01/22/25 Loratadine (Claritin) 10 Mg Tab, 1 TAB PO DAILY, #30 TAB 5 Refills 01/22/25 Gabapentin (Gabapentin) 300 Mg Cap, 300 MG PO, CAP 01/22/25 Hydrocodone-Acetaminophen (Hydrocodone Bitartrate/AC 10-325 mg) 1 Tab Tab, 1 TAB PO, TAB 01/22/25 Information Source: Patient Mode of Arrival: Ambulatory Severity: Moderate Timing: Weeks Duration: Since onset Prehospital treatment: None Past Medical History PAST MEDICAL HISTORY: Denies Surgical History: Cholecystectomy, Hernia Repair Family History Family History: Reviewed,noncontributory to illness Social History Smoker: Non-Smoker Alcohol: Denies ETOH Use Drugs: Denies Drug Use Lives In: Home Constitutional: denies: chills, diaphoresis, fatigue, fever, malaise, sweats, weakness, others EENTM: denies: blurred vision, double vision, ear bleeding, ear discharge, ear drainage, ear pain, ear ringing, eye pain, eye redness, hearing loss, mouth pain, mouth swelling, nasal discharge, nose bleeding, nose congestion, nose pain, photophobia, tearing, throat pain, throat swelling, voice changes, others Respiratory: reports: cough, shortness of breath; denies: hemoptysis, orthopnea, SOB at rest, SOB with excertion, stridor, wheezing, others Cardiovascular: denies: chest pain, dizzy spells, diaphoresis, Dyspnea on exertion, edema, irregular heart beat, left arm pain, lightheadedness, palpitations, PND, syncope, others Gastrointestinal: denies: abdomen distended, abdominal pain, blood streaked bowels, constipated, diarrhea, dysphagia, difficulty swallowing, hematemesis, melena, nausea, poor appetite, poor fluid intake, rectal bleeding, rectal pain, vomiting, others Genitourinary: denies: burning, dysuria, flank pain, frequency, hematuria, incontinence, penile discharge, penile sore, pain, testicle pain, testicle swelling, urgency, others Neurological: reports: headache; denies: dizziness, fainting, left sided numbness, left sided weakness, numbness, paresthesia, pre-existing deficit, right sided numbness, right sided weakness, seizure, speech problems, tingling, tremors, weakness, others Musculoskeletal: reports: others (BODY-ACHES); denies: back pain, gout, joint pain, joint swelling, muscle pain, muscle stiffness, neck pain Integumetry: denies: bruises, change in color, change in hair/nails, dryness, laceration, lesions, lumps, rash, wounds, others Allergic/Immunocompromised: denies: Difficulty Healing, Frequent Infections, Hives, Itching, others Hematologic/Lymphatic: denies: anemia, blood clots, easy bleeding, easy bruising, swollen glands, others Endocrine: denies: excessive hunger, excessive sweating, excessive thirst, excessive urination, flushing, intolerance to cold, intolerance to heat, unexplained weight gain, unexplained weight loss, others Psychiatric: denies: anxiety, bipolar disorder, depression, hopeless, panic disorder, schizophrenia, sleepless, suicidal, others All Other Systems: Reviewed and Negative Physical Exam General Appearance: No Apparent Distress, Normal HEENT: Normal ENT Inspection, Pharynx Normal Neck: Full Range of Motion, Non-Tender, Normal, Normal Inspection Respiratory: Chest Non-Tender, Lungs Clear, No Accessory Muscle Use, No Respiratory Distress, Normal Breath Sounds Cardiovascular: No Edema, No Murmur, No Gallop, Normal Peripheral Pulses, Regular Rate/Rhythm Breast Exam: Deferred Gastrointestinal: No Organomegaly, Non Tender, No Pulsatile Mass, Normal Bowel Sounds, Soft Genitalia: Deferred Pelvic: Deferred Rectal: Deferred Extremities: No calf tenderness, Normal capillary refill, Normal inspection, Normal range of motion, Non-tender, No pedal edema Musculoskeletal : Apperance: Normal Neurologic: Alert, neonatal nurse II-XII nml as Tested, No Motor Deficits, Normal Affect, Normal Mood, No Sensory Deficits Cerebellar Function: Normal Reflexes: Normal Skin: Dry, Normal Color, Warm Lymphatic: No Adenopathy Was a procedure done? Was a procedure done?: No Differential Dx Considerations may include: INFLUENZA, COVID, URI, SINUITIS, MUSCULOSKELETAL PAIN X-Ray, Labs, Meds, VS Vital Signs Date Time Temp Pulse Resp B/P (MAP) Pulse Ox O2 Delivery O2 Flow Rate FiO2 02/23/25 12:58 52 02/23/25 10:54 98.1 57 20 116/71 95 98.1 Lab Test 02/23/25 11:35 Range/Units White Blood Count 4.5 4.4-10.8 10^3/uL Red Blood Count 4.42 L 4.5-5.90 10^6/uL Hemoglobin 14.0 13.5-17.5 g/dL Hematocrit 40.2 L 41.0-53.0 % Mean Corpuscular Volume 90.9 80.0-100.0 fL Mean Corpuscular Hemoglobin 31.7 28.0-32.0 pg Mean Corpuscular Hemoglobin Concent 34.9 32.0-36.0 g/dL Red Cell Distribution Width 13.5 11.8-14.3 % Platelet Count 216 140-450 10^3/uL Mean Platelet Volume 7.7 6.9-10.8 fL Neutrophils (%) (Auto) 64.4 37.0-80.0 % Lymphocytes (%) (Auto) 27.2 10.0-50.0 % Monocytes (%) (Auto) 6.2 0.0-12.0 % Eosinophils (%) (Auto) 1.2 0.0-7.0 % Basophils (%) (Auto) 1.0 0.0-2.0 % Neutrophils # (Auto) 2.9 1.6-8.6 10 ^3/uL Lymphocytes # (Auto) 1.2 0.4-5.4 10 ^3/uL Monocytes # (Auto) 0.3 0-1.3 10 ^3/uL Eosinophils # (Auto) 0.1 0-0.8 10 ^3/uL Basophils # (Auto) 0 0-0.2 10 ^3/uL Nucleated Red Blood Cells 0.1 % Sodium Level 143 136-145 mmol/L Potassium Level 4.1 3.5-5.1 mmol/L Chloride Level 107 98-107 mmol/L Carbon Dioxide Level 28 20-31 mmol/L Anion Gap 8 5-15 Blood Urea Nitrogen 10 9-23 mg/dL Creatinine 0.91 0.700-1.30 mg/dL Glomerular Filtration Rate Calc 98 >90 mL/min BUN/Creatinine Ratio 11.0 10.0-20.0 Serum Glucose 92 74-106 mg/dL Calcium Level 9.4 8.7-10.4 mg/dL [place] [address] Ph: [phone] DIAGNOSTIC IMAGING Diagnostic Imaging Report : [id number] Signed PATIENT: KELVIN ROSSCCT: [id number] UNIT: [id number] : 1965 LOC: ER ROOM / BED: / AGE / SEX: 59 / M ADM STATUS: REG ER SERVICE 1120 ORDERING PHYSICIAN: IMER GALEANO MD PROCEDURE(s): CXRP - CHEST PORTABLE REASON: sob ORDER NUMBER(s): [id number], ACCESSION NUMBER(s): [id number] XY CHEST PORTABLE, HISTORY: sob COMPARISON: CT CT CHEST/AB/PL W CON- IV ONLY on DOS: 11/05/24, XY CHEST TWO VIEWS ROUTINE on DOS: 10/16/[address] CHEST/AB/PL W CON- IV ONLY on DOS: 11/05/24, XY CHEST TWO VIEWS ROUTINE on DOS: 10/16/23 TECHNICAL DATA: 1 view of the chest was obtained. FINDINGS: Lines and tubes: A right arm PICC is seen with tip in the RA. Cardiomediastinal silhouette: normal Pulmonary vasculature: normal Lung expansion: normal Lung airspace: normal Lung interstitium: normal Pleura: normal Pneumothorax: no Bones: Unremarkable Other: no IMPRESSION: No acute intrathoracic abnormality. ATED BY: ZAY NAGY MD DICTATED DATE/TIME: 09/11/25 1211 SIGNED BY: ZAY NAGY MD SIGNED DATE/TIME: 02/23/251210 CC: Time of 1ST Reevaluation: 12:30 Reevaluation 1ST: Unchanged Patient Education/Counseling: Diagnosis, Treatment Family Education/Counseling: No Family Present SEPSIS Sepsis Screen Date sepsis recognized/suspect: Feb 23, 2025 Time Sepsis recognized/suspect: 1055 Recent Procedure: No On Antibiotic Therapy: No Respiratory Rate >20: No Heart Rate >90: No Temp<36 C (96.8 F) or >38.3 C: No SBP <90 or MAP <65 mmHG: No New Acute Mental Status Change: No Is the patient on CPAP, BIPAP,: No Physician Orders Chest Portable (02/23/25 11:20) Electrocardigram (02/23/25 13:13) Troponin-I Hs (02/23/25 13:15) Troponin-I Hs (02/23/25 14:15) Troponin-I Hs (02/23/25 16:15) Vital Signs Date Time Temp Pulse Resp B/P (MAP) Pulse Ox O2 Delivery O2 Flow Rate FiO2 02/23/25 12:58 52 02/23/25 10:54 98.1 57 20 116/71 95 98.1 Laboratory Tests Test 02/23/25 11:35 White Blood Count 4.5 10^3/uL (4.4-10.8) Departure 1 Departure Time of Disposition: 13:16 (Patient presented with shortness of breath however while patient was here patient developed chest pain. Patient presented with chest pain that was concerning for possible STEMI, ACS, PE, Pneumonia, Muscle Strain, COPD, Dissection. Data: 1. I ordered and reviewed the result of at least 3 labs including a CBC, BMP, and Troponin. 2. I independently interpreted the following tests: EKG which shows normal sinus rhythm and Chest X-ray which shows benign chest.Risk:This patient has a high risk of morbidity due to further diagnostic testing or treatment and may suffer from an acute cardiac or respiratory disorder. Workup reveals serum for ACS versus line complication versus viral syndrome and patient should be admitted for further workup and possible expert consultation. ) Impression: Primary Impression: Acute chest pain Additional Impressions: Shortness of breath Myalgia Disposition: ADMITTED INPATIENT Admit to: Med Surg Condition: Serious Critical Care Note Critical Care Time?: Yes Critical care comment: Acute chest pain Authorized and Performed by: Imer Galeano MD Total critical care time: Approximately 36 minutes Due to a high probability of clinically significant, life threatening deterioration, the patient required my highest level of preparedness to intervene emergently and I personally spent this critical care time directly and personally managing the patient. This critical care time included obtaining a history; examining the patient; pulse oximetry; ordering and review of studies; arranging urgent treatment with development of a management plan; evaluation of patient's response to treatment; frequent reassessment; and, discussions with other providers. This critical care time was performed to assess and manage the high probability of imminent, life-threatening deterioration that could result in multi-organ failure. It was exclusive of separately billable procedures and treating other patients and teaching time. Please see my other sections and the rest of the note for further information on patient assessment and treatment. Stability Stability form required: No Heart Score Heart Score: Heart Score Response (Comments) Value History N/A 0 EKG N/A 0 Age N/A 0 Risk Factors N/A 0 Troponin N/A 0 Total 0 I personally scribed for IMER GALEANO MD ([email or web address]) on 02/23/25 at 12:16. Electronically submitted by Olinda Padilla ([employer] I personally scribed for IMER GALEANO MD ([email or web address]) on 02/23/25 at 12:21. Electronically submitted by Olinda Padilla ([employer]). I personally scribed for IMER GALEANO MD ([email or web address]) on 02/23/25 at 12:23. Electronically submitted by Olinda Padilla ([employer]). IMER GALEANO MD Feb 23, 2025 12:16
--- NOTE | 2025-02-23 15:06 | ECG ---
[facility] Test Date: 2025-02-23 Test Time: 12:58:51 Pat Name: REUBEN FONTENOT Department: ED Room: 0285 Gender: M Inspector Salvage: dr BELLB: 1965 Requested By: IMER CARMEN Order Number: [id number] Reading MD: Curt Ferrell Measurements Intervals [place] Rate: 52 P: 44 [place]: 176 QRS: 32 QRSD: 103 T: 61 QT: 464 QTc: 432 Interpretive Statements Sinus rhythm Electronically Signed On 02-28-2025 19:17:39 PDT by Curt Ferrell Please click the below link to view image of tracing.
[2025-02-23] MEDS: HYDROcodone-ACET 5/325MG TAB PO ONE (18:21)
[2025-02-24] VITALS (12 sets, daily range): BP systolic 98–116; BP diastolic 54–79; PULSE 45–69; RESP 11–18; TEMP 97.6–98.5; O2SAT 96–99
[2025-02-24] MEDS ORDERED: ACETAMINOPHEN 325 MG TAB PO PRN (01:45)
[2025-02-24 02:50] LABS: Urine Protein, UAD Negative (Negative)
--- NOTE | 2025-02-24 03:05 | DVH ---
Exam: CT CT AB PEL WO CON-NO ORAL OR IV History: abd pain Comparison Study: CT CT AB PEL WO CON-NO ORAL OR IV on DOS: 04/01/24 Technique: Multidetector spiral CT of the abdomen was performed from lung bases to pubic symphysis. I maging was performed without IV contrast. Axial, coronal and sagittal multiplanar reformats were obta ined from the axial data set by the technologist. Radiation Dose : 1. Abdomen/Pelvis: CTDIvol 11.22 mGy, DLP 700.44 mGy*cm. Findings: Evaluation of solid organs is limited due to lack of intravenous contrast use. Lung Bases: No acute or significant lung base finding. Normal heart size. No pleural or pericardial effusion. Liver: The liver is normal in size. No focal lesions. Gallbladder and Biliary Tree: Status post cholecystectomy. Spleen: Unremarkable Pancreas: The pancreas is grossly normal in appearance. Adrenal Glands: Hypoattenuating cystic appearing left adrenal lesion measuring 2.2 cm, likely represe nting an adenoma. Kidneys: Kidneys are grossly normal without calculi or hydronephrosis. Bladder: Grossly unremarkable for degree of distention. Bowel: Small sliding type hiatal hernia. The stomach is grossly normal in appearance. Retained colore ctal stool. Small bowel and colon are otherwise normal in caliber and distribution. The appendix is n ot visualized; however, no secondary findings of acute appendicitis identified. Ascites: Absent Lymphadenopathy: No mesenteric, retroperitoneal or periportal lymphadenopathy. Abdominal Wall and Mesentery: Unremarkable. Vasculature: The visualized abdominal aorta is normal in size and caliber. Atherosclerotic vascular c alcifications. Evaluation of abdominal and pelvic vessels is limited due to lack of intravenous contr ast. Pelvic Organs: Mild prostatic enlargement, measuring 4.9 cm transverse. Musculoskeletal: No aggressive focal bony lesions, acute fractures or dislocation. Hardware status po st L5-S1 posterior lumbar interbody fusion. IMPRESSION: 1. No acute abdominal or pelvic findings. 2. Retained colorectal stool. 3. Small sliding type hiatal hernia. 4. Mild prostatomegaly. Radiation optimization: All CT scans at this facility use at least one of these dose optimization roseann hniques: automated exposure control mA and/or kV adjustment per patient size (includes targeted exam s where dose is matched to clinical indication) or iterative reconstruction.
[2025-02-24] MEDS: PANTOPRAZOLE 40 MG TAB PO ONE (03:56)
[2025-02-24 04:16] LABS: Hematocrit 35.2 % (41.0-53.0); Hemoglobin 12.3 g/dL (13.5-17.5); Mean Corpuscular Hemoglobin 31.7 pg (28.0-32.0); Mean Corpuscular Volume 90.2 fL (80.0-100.0); Nucleated Red Blood Cells % 0.1 %
[2025-02-24 04:35] LABS: Albumin 3.9 g/dL (3.2-4.8); Alkaline Phosphatase 60 U/L (46-116); Anion Gap 8 (5-15); BUN/Creatinine Ratio 12.4 (10.0-20.0); Blood Urea Nitrogen 12 mg/dL (9-23); Calcium 9.0 mg/dL (8.7-10.4); Carbon Dioxide 29 mmol/L (20-31); Glucose 92 mg/dL (74-106); Potassium 4.0 mmol/L (3.5-5.1); Sodium 144 mmol/L (136-145); Total Protein 6.2 g/dL (5.7-8.2)
[2025-02-24 04:36] LABS: Alanine Aminotransferase < 9 U/L (7-40); Bilirubin, Total 0.6 mg/dL (0.2-1.0); Chloride 107 mmol/L (98-107)
[2025-02-24] MEDS: PANTOPRAZOLE 40 MG TAB PO SCH (06:45)
--- NOTE | 2025-02-24 08:23 | DVHHPRES ---
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 He presented with complaints of head, back, and stomach pain that have persisted for the past three days, along with associated shortness of breath. The abdominal pain is described as sharp, intermittent, and intense, rated at 8 out of 10, without any clear aggravating or relieving factors. Notably, Bib had a peripherally inserted central catheter (PICC) line in place for the administration of intravenous antibiotics at home, managed by a home health nurse, as part of the treatment for his prosthetic joint infection. His scheduled surgery for BPH was recently postponed due to the emergence of these symptoms. Past Medical History (PMH): benign prostatic hyperplasia (BPH), dyslipidemia, gastroesophageal reflux disease (GERD), degenerative joint disease Past Surgical History (PSH): Left knee prosthesis surgery, lumbar spine surgery Family history (FH): Prostate cancer in father EtOH: Denies alcohol use Smoking /Vaping: Denies smoking Recreational Drugs: Denies recreational drug use Residence: Lives with Home Medications: [place], gabapentin, Protonix Allergies: Cortisone PCP: Dr. Falk Specialist relevant to admission: Infectious diseases Review of Systems Review of Systems General: patient denies fever, fatigue, weaknes, sweating, any recent changes in appetite and weight HEENT: Complains of headache, No visiual changes, hearing loss, tinnitus, nasal congestion and discharge, and sore throat. Cardiovascular: Denies chest pain, palpitations, dyspnea on exertion, orthopnea, or claudication. Respiratory: No cough, and wheezing. Gastrointestinal: Complains of abdominal pain Genitourinary: No dysuria, hematuria, discharge, frequency, urgency, nocturia, incontinence, and urinary retention. Endocrine: No heat or cold intolerance, polydipsia, polyuria, and polyphagia. Neurological: No dizziness, extremity weakness and numbness, tremors, gait disturbance, seizures, and memory impairment. Psychiatric: Denies depression, anxiety,or insomnia. Musculoskeletal: Complains of back pain, Denies neck pain, stiffness and swelling, muscle weakness, joint pain, stiffness, swelling, or limited range of motion. Skin: No rashes, itching, skin lesion, changes in hair, nail, skin texture and breast. Hematologic/Lymphatic: Denies easy bruising, bleeding tendencies, or lymph node enlargement. Allergies: Coded Allergies: Cortisone (Verified Allergy, Mild, 10/16/23) Medications Current Medications Medications Dose Ordered Sig/Javier Route Start Time Stop Time Status Last Admin Dose Admin Docusate Sodium 100 mg BIDPRN PRN PO 02/24/25 01:45 Acetaminophen 650 mg Q6HP PRN PO 02/24/25 01:45 Pantoprazole Sodium 40 mg DAILY@0600 PO 02/24/25 07:00 Exam Vital Signs Vital Signs Date Time Temp Pulse Resp B/P (MAP) Pulse Ox O2 Delivery O2 Flow Rate FiO2 02/24/25 04:00 97.6 45 11 116/69 (85) 96 97.6 02/24/25 02:58 Room Air* 0 21 Exam General Appearance: Alert, Oriented X3, Cooperative, No acute distress HEENT: Atraumatic, PERRLA, EOMI, Mucous membrane moist/pink Respiratory: Clear to auscultation, Normal air movement Cardiovascular: Regular rate, Normal S1, Normal S2, No murmurs, no chest wall tenderness Abdominal: Normal bowel sounds, Soft, No hepatospenomegaly, No masses, diffuse abdominal tenderness present Extremities: No clubbing, No cyanosis, No edema, Normal pulses, No tender ness/swelling Skin: No rashes, No breakdown, No significant lesion Neuro: Normal gait, Normal speech, Strength at 5/5 X4 ext, Normal tone, Sensation intact, Cranial nerves 3-12 NL, Reflexes 2+ Psych/Mental Status: Mental status NL, Mood NL Labs/Xrays Labs Test 02/24/25 03:53 02/24/25 02:33 02/23/25 13:24 Range/Units White Blood Count 4.9 4.4-10.8 10^3/uL Red Blood Count 3.90 L 4.5-5.90 10^6/uL Hemoglobin 12.3 L 13.5-17.5 g/dL Hematocrit 35.2 #L 41.0-53.0 % Mean Corpuscular Volume 90.2 80.0-100.0 fL Mean Corpuscular Hemoglobin 31.7 28.0-32.0 pg Mean Corpuscular Hemoglobin Concent 35.1 32.0-36.0 g/dL Red Cell Distribution Width 13.4 11.8-14.3 % Platelet Count 173 140-450 10^3/uL Mean Platelet Volume 8.0 6.9-10.8 fL Neutrophils (%) (Auto) 59.2 37.0-80.0 % Lymphocytes (%) (Auto) 28.4 10.0-50.0 % Monocytes (%) (Auto) 9.2 0.0-12.0 % Eosinophils (%) (Auto) 2.4 0.0-7.0 % Basophils (%) (Auto) 0.8 0.0-2.0 % Neutrophils # (Auto) 2.9 1.6-8.6 10 ^3/uL Lymphocytes # (Auto) 1.4 0.4-5.4 10 ^3/uL Monocytes # (Auto) 0.4 0-1.3 10 ^3/uL Eosinophils # (Auto) 0.1 0-0.8 10 ^3/uL Basophils # (Auto) 0 0-0.2 10 ^3/uL Nucleated Red Blood Cells 0.1 % Urine Color Light-yellow Yellow Urine Clarity Clear Clear Urine pH 6.0 5.0-9.0 Urine Specific [place] 1.015 1.001-1.035 Urine Protein Negative Negative Urine Ketones Negative Negative Urine Blood Negative Negative /uL Urine Nitrite Negative Negative Urine Bilirubin Negative Negative Urine Urobilinogen Normal Negative mg/dL Urine Leukocyte Esterase Negative Negative /uL Urine RBC <1 0 - 3 /hpf Urine Microscopic WBC < 1 0-3 /HPF Urine Squamous Epithelial Cells Few <5 /hpf Urine Bacteria None seen None Seen /hpf Urine Mucus Few None Seen Urine Glucose Normal Normal mg/dL Troponin I High Sensitivity 3 L </=54 ng/L SEPSIS Sepsis Screen Date sepsis recognized/suspect: Feb 24, 2025 Time Sepsis recognized/suspect: 0126 Recent Procedure: No On Antibiotic Therapy: No Respiratory Rate >20: No Heart Rate >90: No Temp<36 C (96.8 F) or >38.3 C: No SBP <90 or MAP <65 mmHG: No New Acute Mental Status Change: No Is the patient on CPAP, BIPAP,: No Physician Orders Admit (02/24/25 01:31) Allergies (02/24/25 01:31) Code Status (02/24/25 01:31) Docusate Sodium Capsule (Colace Capsule) (02/24/25 01:45) Comprehensive Metabolic Panel (02/24/25 04:00) Condition: Fair (02/24/25 01:31) Acetaminophen Tablet (Tylenol Tablet) (02/24/25 01:45) Ct Ab Pel Wo Con-No Oral Or Iv (02/24/25 01:35) * Infectious [place]- Dr. Pollack (02/24/25 01:35) Mrsa Screen (02/24/25 03:44) Hepatitis B Surface Antigen (02/24/25 03:44) Hepatitis C Antibody (02/24/25 03:44) Pantoprazole Tablet (Protonix Tablet) (02/24/25 07:00) Vital Signs Date Time Temp Pulse Resp B/P (MAP) Pulse Ox O2 Delivery O2 Flow Rate FiO2 02/24/25 04:00 97.6 45 11 116/69 (85) 96 97.6 02/24/25 03:00 97.7 45 12 98/64 (75) 96 97.7 02/24/25 02:58 51 15 96 Room Air* 0 21 02/24/25 01:00 97.7 52 15 101/60 (74) 97 97.7 02/24/25 00:35 48 14 97 Room Air* 0 21 02/24/25 00:32 97.6 48 14 111/62 (78) 97 97.6 02/24/25 00:00 50 Laboratory Tests Test 02/24/25 03:53 White Blood Count 4.9 10^3/uL (4.4-10.8) Medications Medications Dose Ordered Sig/Javier Route Start Time Stop Time Status Last Admin Dose Admin Acetaminophen/ Hydrocodone Bitart 1 tab ONCE ONCE PO 02/23/25 18:00 02/23/25 18:02 DC 02/23/25 18:21 1 TAB Pantoprazole Sodium 40 mg ONCE ONCE PO 02/24/25 01:45 02/24/25 01:46 DC 02/24/25 03:56 40 MG Assessment/Plan Assessment/Plan Assessment and plan # Infected left prosthetic knee - Was diagnosed two weeks ago - Patient has a PICC line - Was on IV antibiotics at home - Infectious diseases consult-Dr. Pollack Patient attributes side effects including abdominal pain and generalized body pain due to antibiotics # Intractable abdominal pain, cause not identified yet - CT abdomen - IV morphine as needed, Protonix once - Tylenol # Benign prostatic hyperplasia - Was scheduled for surgery, postponed due to new symptoms - Outpatient follow-up with urologist on discharge # GERD - Continue Protonix # Dyslipidemia - Monitor lipid levels - Consider starting statins if lipid levels are high PUD prophylaxis: Protonix 40mg DVT prophylaxis: brisk movement. Barriers to discharge: Medical diagnosis and management in progress. Patient lives with family. Independent for ADL. PCP: Dr. Falk Specialist Relevent To Admission: Infectious diseases, Dr. Pollack Case discussed with Dr. Rockwell. Code Status: Full Code. Complex patient care discussion needed. Spend total 31 minutes for bedside assessment, case discussion and management. Plan discussed with: Patient My Orders Orders - NASREEN GONZALEZ RESIDENT Procedure Category Date Status Time Admit ADMIT 02/24/25 Transmitted 01:31 Allergies MICHELLE 02/24/25 In Process 01:31 Code Status CODE 02/24/25 Transmitted 01:31 Docusate Sodium PHA 02/24/25 In Process Capsule (Colace 01:45 Comprehensive LAB 02/24/25 In Process Metabolic Panel 04:00 Condition: Fair MICHELLE 02/24/25 In Process 01:31 Acetaminophen Tablet PHA 02/24/25 In Process (Tylenol Tablet) 01:45 Ct Ab Pel Wo Con-No CT 02/24/25 Resulted Oral Or Iv 01:35 * Infectious [place]- CONS 02/24/25 Transmitted Jaki 01:35 Pantoprazole Tablet PHA 02/24/25 In Process (Protonix Tablet) 07:00 Date of Service: Feb 24, 2025 Billing Provider: GRANT ROCKWELL MD Common Visit Codes: 28730-[id number] INP/OBS CARE (HIGH) Secondary Visit Codes: 60011-[id number] CARE PLAN 30 MINUTES NASREEN GONZALEZ RESIDENT Feb 24, 2025 04:58 SAMI MAS RESIDENT Feb 24, 2025 08:48
[2025-02-24] MEDS: MORPHINE SULFATE INJ 2 MG/ml SYRG IV PRN (10:28)
[2025-02-24 11:06] LABS: Hepatitis B Surface Antigen Negative (Negative); Hepatitis C Antibody Negative (Negative)
--- NOTE | 2025-02-24 11:52 | DVHPN2 ---
Reviewed: Care Plan, H&P, Labs, Medications, Previous Orders, Radiology Changes from previous H/P or p: No Changes Objective Vitals Vital Signs Date Time Temp Pulse Resp B/P (MAP) Pulse Ox O2 Delivery O2 Flow Rate FiO2 02/24/25 10:28 53 16 109/70 02/24/25 09:00 98.0 99 98.0 02/24/25 02:58 Room Air* 0 21 Intake/Output Intake and Output 02/24/25 07:00 Intake Total 0 ml Balance 0 ml Intake Oral 0 ml Medications Current Medications Medications Dose Ordered Sig/Javier Route Start Time Stop Time Status Last Admin Dose Admin Docusate Sodium 100 mg BIDPRN PRN PO 02/24/25 01:45 Acetaminophen 650 mg Q6HP PRN PO 02/24/25 01:45 Pantoprazole Sodium 40 mg DAILY@0600 PO 02/24/25 07:00 Morphine Sulfate 0.5 mg Q6HP PRN IV 02/24/25 05:00 02/24/25 10:28 0.5 MG Laboratory Results Laboratory Tests 02/24/25 03:53 Chemistry Test 02/24/25 03:53 Albumin 3.9 g/dL (3.2-4.8) Calcium Level 9.0 mg/dL (8.7-10.4) Total Protein 6.2 g/dL (5.7-8.2) LFT Test 02/24/25 03:53 Alanine Aminotransferase (ALT) < 9 U/L (7-40) Alkaline Phosphatase 60 U/L (46-116) Aspartate Amino Transferase (AST) 12 U/L (13-40) L Total Bilirubin 0.6 mg/dL (0.2-1.0) Urinalysis Test 02/24/25 02:33 Urine Color Light-yellow (Yellow) Urine Clarity Clear (Clear) Urine pH 6.0 (5.0-9.0) Urine Specific [place] 1.015 (1.001-1.035) Urine Protein Negative (Negative) Urine Ketones Negative (Negative) Urine Blood Negative /uL (Negative) Urine Nitrite Negative (Negative) Urine Bilirubin Negative (Negative) Urine Urobilinogen Normal mg/dL (Negative) Urine Leukocyte Esterase Negative /uL (Negative) Urine RBC <1 /hpf (0 - 3) Urine Microscopic WBC < 1 /HPF (0-3) Urine Squamous Epithelial Cells Few /hpf (<5) Urine Bacteria None seen /hpf (None Seen) Urine Mucus Few (None Seen) Urine Glucose Normal mg/dL (Normal) Labs and/or images reviewed: Labs reviewed by me, Image(s) reviewed by me Assessment/Plan Assessment/Plan Sepsis Secondary to infected left prosthetic knee, discharged home on home health on 01-27-25 with Rocephin 1 g IV daily and daptomycin 6 milligrams/kilos IV daily for six weeks, pt stopped for possible reaction, ID consult for Dr. Mustafa placed Infected left prosthetic knee Intractable abdominal pain . All labs were normal CT abdomen pelvis without contrast negative , lipase pending BPH Hypercholesterolemia GERD Plan discussed with: Patient Date of Service: Feb 24, 2025 Billing Provider: SIMON VINES MD Common Visit Codes: [id number] INP/OBS CARE(HIGH) SIMON VINES MD Feb 24, 2025 11:52
[2025-02-24] MEDS: HYDROcodone-ACET 5/325MG TAB PO PRN (15:36)
--- NOTE | 2025-02-24 16:49 | DVHCONRES ---
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 He presented with complaints of head, back, and stomach pain, along with associated shortness of breath. The abdominal pain was sharp, intermittent, and intense, 8/10, without any clear aggravating or relieving factors. Had PICC OA for IV daptomycin, ceftriaxone administration at home (completed 4/6 weeks of antibiotic course, follows with Dr. Pollack) to manage prosthetic joint infection. He underwent a prosthetic knee surgery in 2021 at the [facility] and a revision at the [facility] last year. Today,labs showed WBC 4.5k on arrival, UA WNL negative serology for hep B, hep C. CT abdomen show retained colorectal stool, sliding hiatal hernia, mild prostatomegaly. CXR reveal no acute abnormality ROS: Constitutional: Denies weight loss, fever and chills. HEENT: Denies changes in vision and hearing. Respiratory: Denies shortness of breath and cough Cardiovascular: Denies chest discomfort or palpitations GI: Denies abdominal pain, nausea, vomiting and diarrhea. : Denies dysuria and urinary frequency. Musculoskeletal: Denies myalgias and joint pain Skin: Denies rash and pruritus. Neurological: Denies dizziness, headache, vision or hearing problems Physical Exam: General: Patient alert and oriented in person, place and time. Patient following commands. HEENT: Normocephalic, atraumatic, moist mucous membranes Respiratory/pulmonary: Clear lungs bilaterally, vesicular murmurs present in a lmost all lung christina, no associated crackles or wheezes. Cardiovascular: Normal heart sounds S1 and S2 with no associated murmurs Abdomen: Abdomen nondistended, there is no pain to palpation in any of the abdominal quadrants, no palpable masses. Extremities: There is no peripheral edema present at the lower extremities. Peripheral Pulses: 3+ Radial (R). 3+ Radial (L). 3+ Dorsalis pedis (R). 3+ Dorsalis pedis(L) Skin: No rashes or pruritus, there is no sacral edema present at this time. Neurological: Intact cranial nerves with no focal neurologic deficits Assessment: Sepsis d/t left knee prosthetic joint infection BPH Hypercholesterolemia GERD Plan /recommendation: Kindly consult ortho; ideally a candidate for two stage revision arthroplasty, please collect multiple cultures when doing washout. Can consider rifampin in the postop period to target biofilm. No cultures available from previous encounters with ID, patient was on IV daptomycin and ceftriaxone, we will restart these antibiotics. Restart daptomycin after checking CK levels, continue CK monitoring Started IV ceftriaxone 2 g daily Ordered ESR, CRP, CT with and without contrast Plan of care discussed with Dr. Mustafa Thank you for letting us take care of your patient. Family History: FH: prostate cancer G8 FATHER Allergies: Coded Allergies: Cortisone (Verified Allergy, Mild, 10/16/23) Home Meds Reported Medications Pantoprazole Sodium Sesquihydr (Protonix) 40 Mg Tab, 40 MG PO DAILY, #30 TAB 01/22/25 Loratadine (Claritin) 10 Mg Tab, 1 TAB PO DAILY, #30 TAB 5 Refills 01/22/25 Gabapentin (Gabapentin) 300 Mg Cap, 300 MG PO, CAP 01/22/25 Hydrocodone-Acetaminophen (Hydrocodone Bitartrate/AC 10-325 mg) 1 Tab Tab, 1 TAB PO, TAB 01/22/25 Current Medications Current Medications Medications (Trade) Dose Ordered Sig/Javier Route PRN Reason Start Time Stop Time Status Last Admin Docusate Sodium (Colace Capsule) 100 mg BIDPRN PRN PO FOR CONSTIPATION 02/24/25 01:45 Acetaminophen (Tylenol Tablet) 650 mg Q6HP PRN PO PAIN SCALE 1-3 OR TEMP>100.4 02/24/25 01:45 Pantoprazole Sodium (Protonix Tablet) 40 mg DAILY@0600 PO 02/24/25 07:00 Morphine Sulfate 0.5 mg Q6HP PRN IV SEVERE PAIN (7-10 PAIN SCALE) 02/24/25 05:00 02/24/25 14:15 DC 02/24/25 10:28 Acetaminophen/ Hydrocodone Bitart (Dana 5/325MG Tab) 1 tab Q4HPRN PRN PO SEVERE PAIN (7-10 PAIN SCALE) 02/24/25 14:15 02/24/25 15:36 Vital Signs Vital Signs Date Time Temp Pulse Resp B/P (MAP) Pulse Ox O2 Delivery O2 Flow Rate FiO2 02/24/25 13:00 98.5 46 18 110/70 (83) 98 98.5 02/24/25 08:00 Room Air* 0 21 Labs/Diagnostic Data Labs Test 02/24/25 03:53 02/24/25 02:33 02/23/25 13:24 Range/Units White Blood Count 4.9 4.4-10.8 10^3/uL Red Blood Count 3.90 L 4.5-5.90 10^6/uL Hemoglobin 12.3 L 13.5-17.5 g/dL Hematocrit 35.2 #L 41.0-53.0 % Mean Corpuscular Volume 90.2 80.0-100.0 fL Mean Corpuscular Hemoglobin 31.7 28.0-32.0 pg Mean Corpuscular Hemoglobin Concent 35.1 32.0-36.0 g/dL Red Cell Distribution Width 13.4 11.8-14.3 % Platelet Count 173 140-450 10^3/uL Mean Platelet Volume 8.0 6.9-10.8 fL Neutrophils (%) (Auto) 59.2 37.0-80.0 % Lymphocytes (%) (Auto) 28.4 10.0-50.0 % Monocytes (%) (Auto) 9.2 0.0-12.0 % Eosinophils (%) (Auto) 2.4 0.0-7.0 % Basophils (%) (Auto) 0.8 0.0-2.0 % Neutrophils # (Auto) 2.9 1.6-8.6 10 ^3/uL Lymphocytes # (Auto) 1.4 0.4-5.4 10 ^3/uL Monocytes # (Auto) 0.4 0-1.3 10 ^3/uL Eosinophils # (Auto) 0.1 0-0.8 10 ^3/uL Basophils # (Auto) 0 0-0.2 10 ^3/uL Nucleated Red Blood Cells 0.1 % Sodium Level 144 136-145 mmol/L Potassium Level 4.0 3.5-5.1 mmol/L Chloride Level 107 98-107 mmol/L Carbon Dioxide Level 29 20-31 mmol/L Anion Gap 8 5-15 Blood Urea Nitrogen 12 9-23 mg/dL Creatinine 0.97 0.700-1.30 mg/dL Glomerular Filtration Rate Calc 90 >90 mL/min BUN/Creatinine Ratio 12.4 10.0-20.0 Serum Glucose 92 74-106 mg/dL Calcium Level 9.0 8.7-10.4 mg/dL Total Bilirubin 0.6 0.2-1.0 mg/dL Aspartate Amino Transferase (AST) 12 L 13-40 U/L Alanine Aminotransferase (ALT) < 9 7-40 U/L Alkaline Phosphatase 60 46-116 U/L Total Protein 6.2 5.7-8.2 g/dL Albumin 3.9 3.2-4.8 g/dL Lipase 24 12-53 U/L Hepatitis B Surface Antigen Negative Negative Hepatitis C Antibody Negative Negative Urine Color Light-yellow Yellow Urine Clarity Clear Clear Urine pH 6.0 5.0-9.0 Urine Specific [place] 1.015 1.001-1.035 Urine Protein Negative Negative Urine Ketones Negative Negative Urine Blood Negative Negative /uL Urine Nitrite Negative Negative Urine Bilirubin Negative Negative Urine Urobilinogen Normal Negative mg/dL Urine Leukocyte Esterase Negative Negative /uL Urine RBC <1 0 - 3 /hpf Urine Microscopic WBC < 1 0-3 /HPF Urine Squamous Epithelial Cells Few <5 /hpf Urine Bacteria None seen None Seen /hpf Urine Mucus Few None Seen Urine Glucose Normal Normal mg/dL Troponin I High Sensitivity 3 L </=54 ng/L Plan discussed with: Patient, Spouse CASSANDRA LEE RESIDENT Feb 24, 2025 16:49
[2025-02-25] VITALS (8 sets, daily range): BP systolic 100–112; BP diastolic 64–78; PULSE 44–57; RESP 17–20; TEMP 97.8–98.4; O2SAT 96–98
[2025-02-25] MEDS ORDERED: DAPTOmycin 6MG/KG PER PHARMACY 0 MG IV SCH (10:15)
--- NOTE | 2025-02-25 10:56 | DVHPN2 ---
Reviewed: Care Plan, H&P, Labs, Medications, Previous Orders, Radiology Changes from previous H/P or p: No Changes Objective Vitals Vital Signs Date Time Temp Pulse Resp B/P (MAP) Pulse Ox O2 Delivery O2 Flow Rate FiO2 02/25/25 09:00 97.8 47 20 110/67 (81) 97 97.8 02/25/25 08:00 Room Air* 0 21 Intake/Output Intake and Output 02/25/25 07:00 Intake Total 1061 ml Balance 1061 ml Intake Oral 1061 ml # Voids 8 Medications Current Medications Medications Dose Ordered Sig/Javier Route Start Time Stop Time Status Last Admin Dose Admin Docusate Sodium 100 mg BIDPRN PRN PO 02/24/25 01:45 Acetaminophen 650 mg Q6HP PRN PO 02/24/25 01:45 Pantoprazole Sodium 40 mg DAILY@0600 PO 02/24/25 07:00 02/25/25 05:57 40 MG Acetaminophen/ Hydrocodone Bitart 1 tab Q4HPRN PRN PO 02/24/25 14:15 02/24/25 20:27 1 TAB Ceftriaxone Sodium/Dextrose 50 ml @ 50 mls/hr DAILY IV 02/24/25 19:30 Daptomycin 0 ml @ 0 mls/hr PER PHARMACY IV 02/25/25 10:15 UNV Laboratory Results Laboratory Tests 02/24/25 03:53 Urinalysis Test 02/24/25 02:33 Urine Color Light-yellow (Yellow) Urine Clarity Clear (Clear) Urine pH 6.0 (5.0-9.0) Urine Specific [place] 1.015 (1.001-1.035) Urine Protein Negative (Negative) Urine Ketones Negative (Negative) Urine Blood Negative /uL (Negative) Urine Nitrite Negative (Negative) Urine Bilirubin Negative (Negative) Urine Urobilinogen Normal mg/dL (Negative) Urine Leukocyte Esterase Negative /uL (Negative) Urine RBC <1 /hpf (0 - 3) Urine Microscopic WBC < 1 /HPF (0-3) Urine Squamous Epithelial Cells Few /hpf (<5) Urine Bacteria None seen /hpf (None Seen) Urine Mucus Few (None Seen) Urine Glucose Normal mg/dL (Normal) Labs and/or images reviewed: Labs reviewed by me, Image(s) reviewed by me Assessment/Plan Assessment/Plan 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 Rod Mustafa appreciated , restarted back on Rocephin 2 g IV daily and daptomycin 6 milligrams/kilos IV daily Infected left prosthetic knee consult for Dr. Patel Intractable abdominal pain . All labs were normal CT abdomen pelvis without contrast negative lipase normal BPH Hypercholesterolemia GERD Noncompliance: Patient refusing IV antibiotics Plan discussed with: Patient My Orders Orders - SIMON VINES MD Procedure Category Date Status Time * Infectious Lovilia- DrEligio CONS 02/24/25 Transmitted Trino Mustafa 11:58 Regular Diet DIET 02/24/25 Transmitted Lunch Hydrocodone-Acet PHA 02/24/25 In Process 5/325mg Tab ([place] 14:15 Date of Service: Feb 25, 2025 Billing Provider: SIMON VINES MD Common Visit Codes: [id number] INP/OBS CARE(HIGH) SIMON VINES MD Feb 25, 2025 10:56
[2025-02-25] MEDS: IOHEXOL 300 MG/ML 100ML BOTTLE IJ ONE (12:18)
--- NOTE | 2025-02-25 12:44 | DVH ---
EXAM: CT LT LOWER EXTREMITY W CONTRAS INDICATION: POSSIBLE PROSTHETIC JOINT INFECTION TECHNIQUE: Axial images of left lower extremity have been obtained along with coronal and sagittal re formatted images. All CT scans at this facility use dose modulation, iterative reconstruction, and/or weight based dosing when appropriate to reduce radiation dose to as low as reasonably achievable. COMPARISON: CT CT L KNEE WO CONTRAST on DOS: 01/23/25 FINDINGS: BONES: No CT evidence of an acute fracture or aggressive osseous lesion. long stem femoral hardware p lacement. Left tibial plateau hardware component. No osseous lucency along the hardware bone interfa brayden. No perihardware fracture. MUSCLES: No abnormal attenuation. JOINT SPACES: No joint effusion. TENDONS/LIGAMENTS: Intact. OTHER: None. IMPRESSION: 1. No CT evidence of an acute fracture or aggressive osseous lesion. 2. No osseous lucency along the hardware bone interfaces. 3. No perihardware fracture. 4. No significant joint effusion.
[2025-02-25] MEDS ORDERED: VANCOMYCIN PER PHARMACY 0 MG IV SCH (13:45)
[2025-02-25] MEDS: VANCOMYCIN 1.75GM/350ML 350 ML IV ONE (14:00)
[2025-02-25] MEDS: CEFEPIME 2GM/50ML NS 50 ML IV SCH (14:25)
[2025-02-25] MEDS: DOCUSATE SOD 100 MG CAP PO PRN (17:17)
[2025-02-25] MEDS: VANCOMYCIN 1GM/250ML KIT 250 ML IV SCH (18:00)
[2025-02-26 01:00] VITALS: BP 108/77; PULSE 53; RESP 18; TEMP 98.1; O2SAT 98
[2025-02-26] MEDS ORDERED: PANTOPRAZOLE 40 MG/10 ML VIAL INJ IV ONE (01:15)
[2025-02-26 05:00] VITALS: BP 112/77; PULSE 52; RESP 18; TEMP 97.8; O2SAT 97
[2025-02-26] MEDS: PANTOPRAZOLE 40 MG TAB PO SCH (06:13)
--- NOTE | 2025-02-26 08:37 | DVHINCON2 ---
Date of service: Feb 26, 2025 Reason for Consultation Left knee pain History of Present Illness 59 yo M with hx of revision Left TKA -- hx of previous infection treated initially. He states over last two weeks his pain has increased. No fever or chills/cp/sob currently -- he was having SOB prior Past Medical History list reviewed Family History: FH: prostate cancer G8 FATHER Allergies: Coded Allergies: Cortisone (Verified Allergy, Mild, 10/16/23) Home Meds Reported Medications Pantoprazole Sodium Sesquihydr (Protonix) 40 Mg Tab, 40 MG PO DAILY, #30 TAB 01/22/25 Loratadine (Claritin) 10 Mg Tab, 1 TAB PO DAILY, #30 TAB 5 Refills 01/22/25 Gabapentin (Gabapentin) 300 Mg Cap, 300 MG PO, CAP 01/22/25 Hydrocodone-Acetaminophen (Hydrocodone Bitartrate/AC 10-325 mg) 1 Tab Tab, 1 TAB PO, TAB 01/22/25 Current Medications Current Medications Medications (Trade) Dose Ordered Sig/Javier Route PRN Reason Start Time Stop Time Status Last Admin Daptomycin 0 ml @ 0 mls/hr PER PHARMACY IV 02/25/25 10:15 02/25/25 13:48 DC Daptomycin 500 mg/ Sodium Chloride 50 ml @ 100 mls/hr DAILY IV 02/26/25 10:00 02/25/25 13:48 DC Vancomycin HCl 0 ml @ 0 mls/hr UD IV 02/25/25 13:45 Cefepime HCl 50 ml @ 12.5 mls/hr Q8HR IV 02/25/25 14:00 02/25/25 14:25 Vancomycin HCl 250 ml @ 250 mls/hr Q12H IV 02/25/25 18:00 Pantoprazole Sodium (Protonix Tablet) 40 mg BIDAC PO 02/26/25 07:00 02/26/25 06:13 Review of Systems 10 point ROS is neg except per HPI Vital Signs Vital Signs Date Time Temp Pulse Resp B/P (MAP) Pulse Ox O2 Delivery O2 Flow Rate FiO2 02/26/25 08:00 Room Air* 0 21 02/26/25 05:00 97.8 52 18 112/77 (89) 97 97.8 Physical Exam NAD LLE: no erythema noted Knee ROM 0-95 min effusion Labs/Diagnostic Data Labs Test 02/25/25 11:35 02/24/25 03:53 02/24/25 02:33 02/23/25 13:24 Range/Units Creatine Kinase 53 46-171 U/L White Blood Count 4.9 4.4-10.8 10^3/uL Red Blood Count 3.90 L 4.5-5.90 10^6/uL Hemoglobin 12.3 L 13.5-17.5 g/dL Hematocrit 35.2 #L 41.0-53.0 % Mean Corpuscular Volume 90.2 80.0-100.0 fL Mean Corpuscular Hemoglobin 31.7 28.0-32.0 pg Mean Corpuscular Hemoglobin Concent 35.1 32.0-36.0 g/dL Red Cell Distribution Width 13.4 11.8-14.3 % Platelet Count 173 140-450 10^3/uL Mean Platelet Volume 8.0 6.9-10.8 fL Neutrophils (%) (Auto) 59.2 37.0-80.0 % Lymphocytes (%) (Auto) 28.4 10.0-50.0 % Monocytes (%) (Auto) 9.2 0.0-12.0 % Eosinophils (%) (Auto) 2.4 0.0-7.0 % Basophils (%) (Auto) 0.8 0.0-2.0 % Neutrophils # (Auto) 2.9 1.6-8.6 10 ^3/uL Lymphocytes # (Auto) 1.4 0.4-5.4 10 ^3/uL Monocytes # (Auto) 0.4 0-1.3 10 ^3/uL Eosinophils # (Auto) 0.1 0-0.8 10 ^3/uL Basophils # (Auto) 0 0-0.2 10 ^3/uL Nucleated Red Blood Cells 0.1 % Erythrocyte Sedimentation Rate 2 0-20 mm/hr Sodium Level 144 136-145 mmol/L Potassium Level 4.0 3.5-5.1 mmol/L Chloride Level 107 98-107 mmol/L Carbon Dioxide Level 29 20-31 mmol/L Anion Gap 8 5-15 Blood Urea Nitrogen 12 9-23 mg/dL Creatinine 0.97 0.700-1.30 mg/dL Glomerular Filtration Rate Calc 90 >90 mL/min BUN/Creatinine Ratio 12.4 10.0-20.0 Serum Glucose 92 74-106 mg/dL Calcium Level 9.0 8.7-10.4 mg/dL Total Bilirubin 0.6 0.2-1.0 mg/dL Aspartate Amino Transferase (AST) 12 L 13-40 U/L Alanine Aminotransferase (ALT) < 9 7-40 U/L Alkaline Phosphatase 60 46-116 U/L C-Reactive Protein High Sensitivity 0.18 <1.0 mg/dL Total Protein 6.2 5.7-8.2 g/dL Albumin 3.9 3.2-4.8 g/dL Lipase 24 12-53 U/L Hepatitis B Surface Antigen Negative Negative Hepatitis C Antibody Negative Negative Urine Color Light-yellow Yellow Urine Clarity Clear Clear Urine pH 6.0 5.0-9.0 Urine Specific [place] 1.015 1.001-1.035 Urine Protein Negative Negative Urine Ketones Negative Negative Urine Blood Negative Negative /uL Urine Nitrite Negative Negative Urine Bilirubin Negative Negative Urine Urobilinogen Normal Negative mg/dL Urine Leukocyte Esterase Negative Negative /uL Urine RBC <1 0 - 3 /hpf Urine Microscopic WBC < 1 0-3 /HPF Urine Squamous Epithelial Cells Few <5 /hpf Urine Bacteria None seen None Seen /hpf Urine Mucus Few None Seen Urine Glucose Normal Normal mg/dL Troponin I High Sensitivity 3 L </=54 ng/L Plan/Recommendation 59 yo M with left total knee pain 1. ESR normal 2. CRP pending 3. left knee aspiration ordered 4. clinically does not look like any infection but will rule out with labs 5. pain control Plan discussed with: Patient ZULEMA GUZMAN MD Feb 26, 2025 08:37
[2025-02-26 09:00] VITALS: BP 111/69; PULSE 50; RESP 20; TEMP 97.4; O2SAT 97
[2025-02-26] MEDS ORDERED: DAPTOmycin 500 MG in SODIUM CHL 0.9% 50 ML IV SCH (10:00)
--- NOTE | 2025-02-26 12:42 | DVHPN2 ---
Reviewed: Care Plan, H&P, Labs, Medications, Previous Orders, Radiology Changes from previous H/P or p: No Changes Objective Vitals Vital Signs Date Time Temp Pulse Resp B/P (MAP) Pulse Ox O2 Delivery O2 Flow Rate FiO2 02/26/25 09:00 97.4 50 20 111/69 (83) 97 97.4 02/26/25 08:00 Room Air* 0 21 Intake/Output Intake and Output 02/26/25 07:00 Intake Total 1550 ml Balance 1550 ml Intake Oral 1550 ml # Voids 10 Medications Current Medications Medications Dose Ordered Sig/Javier Route Start Time Stop Time Status Last Admin Dose Admin Docusate Sodium 100 mg BIDPRN PRN PO 02/24/25 01:45 02/25/25 17:17 100 MG Acetaminophen 650 mg Q6HP PRN PO 02/24/25 01:45 Acetaminophen/ Hydrocodone Bitart 1 tab Q4HPRN PRN PO 02/24/25 14:15 02/25/25 21:39 1 TAB Vancomycin HCl 0 ml @ 0 mls/hr UD IV 02/25/25 13:45 Cefepime HCl 50 ml @ 12.5 mls/hr Q8HR IV 02/25/25 14:00 02/25/25 14:25 12.5 MLS/HR Vancomycin HCl 250 ml @ 250 mls/hr Q12H IV 02/25/25 18:00 Pantoprazole Sodium 40 mg BIDAC PO 02/26/25 07:00 02/26/25 06:13 40 MG Laboratory Results Laboratory Tests 02/24/25 03:53 Urinalysis Test 02/24/25 02:33 Urine Color Light-yellow (Yellow) Urine Clarity Clear (Clear) Urine pH 6.0 (5.0-9.0) Urine Specific [place] 1.015 (1.001-1.035) Urine Protein Negative (Negative) Urine Ketones Negative (Negative) Urine Blood Negative /uL (Negative) Urine Nitrite Negative (Negative) Urine Bilirubin Negative (Negative) Urine Urobilinogen Normal mg/dL (Negative) Urine Leukocyte Esterase Negative /uL (Negative) Urine RBC <1 /hpf (0 - 3) Urine Microscopic WBC < 1 /HPF (0-3) Urine Squamous Epithelial Cells Few /hpf (<5) Urine Bacteria None seen /hpf (None Seen) Urine Mucus Few (None Seen) Urine Glucose Normal mg/dL (Normal) Labs and/or images reviewed: Labs reviewed by me, Image(s) reviewed by me Assessment/Plan Assessment/Plan Possible infected left prosthetic knee, discharged home on home health on 01-27-[address] Rod Mustafa appreciated , restarted back on Rocephin 2 g IV daily and daptomycin 6 milligrams/kilos IV daily Infected left prosthetic knee consult for Dr. Patel appreciated, recommended aspiration by the radiologist but the patient refusing and wants to go home Intractable abdominal pain . All labs were normal CT abdomen pelvis without contrast negative lipase normal BPH Hypercholesterolemia GERD Noncompliance: Patient refusing IV antibiotics Plan discussed with: Patient Date of Service: Feb 26, 2025 Billing Provider: SIMON VINES MD Common Visit Codes: [id number] INP/OBS CARE(HIGH) SIMON VINES MD Feb 26, 2025 12:42
[2025-02-26] MEDS ORDERED: CEPH500C PO (12:43)
--- NOTE | 2025-02-26 12:49 | DVHDS2 ---
Discharge Summary Date of Admission Feb 24, 2025 at 01:31 Date of Discharge: Feb 26, 2025 Admitting Diagnosis Possible infected left knee Wounds: None Labs/Diagnostic Data: Laboratory Results Test 02/26/25 09:27 02/25/25 11:35 02/24/25 03:53 02/24/25 02:33 C-Reactive Protein High Sensitivity 0.16 mg/dL (<1.0) Creatine Kinase 53 U/L (46-171) White Blood Count 4.9 10^3/uL (4.4-10.8) Red Blood Count 3.90 10^6/uL (4.5-5.90) Hemoglobin 12.3 g/dL (13.5-17.5) Hematocrit 35.2 % (41.0-53.0) Mean Corpuscular Volume 90.2 fL (80.0-100.0) Mean Corpuscular Hemoglobin 31.7 pg (28.0-32.0) Mean Corpuscular Hemoglobin Concent 35.1 g/dL (32.0-36.0) Red Cell Distribution Width 13.4 % (11.8-14.3) Platelet Count 173 10^3/uL (140-450) Mean Platelet Volume 8.0 fL (6.9-10.8) Neutrophils (%) (Auto) 59.2 % (37.0-80.0) Lymphocytes (%) (Auto) 28.4 % (10.0-50.0) Monocytes (%) (Auto) 9.2 % (0.0-12.0) Eosinophils (%) (Auto) 2.4 % (0.0-7.0) Basophils (%) (Auto) 0.8 % (0.0-2.0) Neutrophils # (Auto) 2.9 10 ^3/uL (1.6-8.6) Lymphocytes # (Auto) 1.4 10 ^3/uL (0.4-5.4) Monocytes # (Auto) 0.4 10 ^3/uL (0-1.3) Eosinophils # (Auto) 0.1 10 ^3/uL (0-0.8) Basophils # (Auto) 0 10 ^3/uL (0-0.2) Nucleated Red Blood Cells 0.1 % Erythrocyte Sedimentation Rate 2 mm/hr (0-20) Sodium Level 144 mmol/L (136-145) Potassium Level 4.0 mmol/L (3.5-5.1) Chloride Level 107 mmol/L (98-107) Carbon Dioxide Level 29 mmol/L (20-31) Anion Gap 8 (5-15) Blood Urea Nitrogen 12 mg/dL (9-23) Creatinine 0.97 mg/dL (0.700-1.30) Glomerular Filtration Rate Calc 90 mL/min (>90) BUN/Creatinine Ratio 12.4 (10.0-20.0) Serum Glucose 92 mg/dL (74-106) Calcium Level 9.0 mg/dL (8.7-10.4) Total Bilirubin 0.6 mg/dL (0.2-1.0) Aspartate Amino Transferase (AST) 12 U/L (13-40) Alanine Aminotransferase (ALT) < 9 U/L (7-40) Alkaline Phosphatase 60 U/L (46-116) Total Protein 6.2 g/dL (5.7-8.2) Albumin 3.9 g/dL (3.2-4.8) Lipase 24 U/L (12-53) Hepatitis B Surface Antigen Negative (Negative) Hepatitis C Antibody Negative (Negative) Urine Color Light-yellow (Yellow) Urine Clarity Clear (Clear) Urine pH 6.0 (5.0-9.0) Urine Specific [place] 1.015 (1.001-1.035) Urine Protein Negative (Negative) Urine Ketones Negative (Negative) Urine Blood Negative /uL (Negative) Urine Nitrite Negative (Negative) Urine Bilirubin Negative (Negative) Urine Urobilinogen Normal mg/dL (Negative) Urine Leukocyte Esterase Negative /uL (Negative) Urine RBC <1 /hpf (0 - 3) Urine Microscopic WBC < 1 /HPF (0-3) Urine Squamous Epithelial Cells Few /hpf (<5) Urine Bacteria None seen /hpf (None Seen) Urine Mucus Few (None Seen) Urine Glucose Normal mg/dL (Normal) Test 02/23/25 13:24 Troponin I High Sensitivity 3 ng/L (</=54) Other Laboratory Tests 02/24/25 03:53 Brief Hx & Hospital Course: 59-year-old male status post left knee replacement at [facility] January 2024 BPH hypercholesterolemia came in complaining of possible infected left knee. He was recently discharged on 01/27/2025 with the Rocephin and daptomycin IV for possible left knee infection but he discontinued the medication claiming they made him sick. Complaint for abdominal pain with some nausea. CT abdomen pelvis without contrast negative CT left knee is negative for any acute abnormality seen by orthopedic Dr in a year advised possible aspiration by the radiologist chucky Carmona at the bedside the patient refused aspiration and would like to be discharged home today. Keflex sent to the pharmacy discharged home he was advised to follow up with his primary Dr Dr. Hook for further referral to his orthopedic surgeon if needed Patient is noncompliant with the treatment regimen Consults/Reason for consult Orthopedic Dr Patel Operations or Procedures CT of the left knee CT abdomen pelvis without contrast Condition at Discharge: Fair Final Diagnosis/Problems List 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 Rod Mustafa appreciated , restarted back on Rocephin 2 g IV daily and daptomycin 6 milligrams/kilos IV daily Infected left prosthetic knee consult for Dr. Patel appreciated, recommended aspiration by the radiologist but the patient refusing and wants to go home Intractable abdominal pain . All labs were normal CT abdomen pelvis without contrast negative lipase normal BPH Hypercholesterolemia GERD Noncompliance: Patient refusing IV antibiotics Discharge Disposition: Home Discharge Instruct/Medications Diet: Cardiac 2g Na,low cholest Activity: Light activity Follow Up/Referral: Follow up with your primary Dr Blake for any further referral to your orthopedic surgeon Medications: Keflex Sent to the pharmacy Scheduled Cephalexin Monohydrate (Cephalexin), 1 CAP PO QID Loratadine (Claritin), 1 TAB PO DAILY, (Reported) Pantoprazole Sodium Sesquihydr (Protonix), 40 MG PO DAILY, (Reported) Miscellaneous Medications Gabapentin (Gabapentin), 300 MG PO, (Reported) Hydrocodone-Acetaminophen (Hydrocodone Bitartrate/AC 10-325 mg), 1 TAB PO, (Reported) 36 (Time taken for discharge summary 36 mts) Discharge Statement: "Patient was advised to return to the ER or call 911 if any headaches, dizziness, shortness of breath, chest pain, abdominal pain, bleeding, fevers, or worsening of medical condition. Patient was counseled about treatment plan, medications, possible side effects, patientverbalized understanding. All questions were answered to the best of my ability. This discharge took greater then 30 minutes in planning, reviewing documentation, counseling the patient, and discussing with other team members." ASSESSMENT ASSESSMENT Hospital Course Improved Assessment 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 Rod Mustafa appreciated , restarted back on Rocephin 2 g IV daily and daptomycin 6 milligrams/kilos IV daily Infected left prosthetic knee consult for Dr. Patel appreciated, recommended aspiration by the radiologist but the patient refusing and wants to go home Intractable abdominal pain . All labs were normal CT abdomen pelvis without contrast negative lipase normal BPH Hypercholesterolemia GERD Noncompliance: Patient refusing IV antibiotics Date of Service: Feb 26, 2025 Billing Provider: SIMON VINES MD Common Visit Codes: 50346-LJA/OBS DISCH DAY >30min SIMON VINES MD Feb 26, 2025 12:49
[2025-02-26 13:00] VITALS: BP 113/80; PULSE 64; RESP 20; TEMP 98.1; O2SAT 98
[2025-02-26 14:17] VITALS: TEMP 36.3
--- NOTE | 2025-02-27 12:32 | DVHPN2 ---
Consult Progress Note Objective vital signs Vital Sign Date Time Temp Pulse Resp B/P (MAP) Pulse Ox O2 Delivery O2 Flow Rate FiO2 02/26/25 14:17 36.3 02/26/25 13:00 64 20 113/80 (91) 98 02/26/25 08:00 Room Air* 0 21 Total Intake and Output 02/26/25 02/26/25 02/27/25 15:00 23:00 07:00 Intake Total 480 ml Balance 480 ml laboratory and microbiology Laboratory Tests 02/24/25 03:53 Test 02/24/25 03:53 Range/Units Serum Glucose 92 74-106 mg/dL JENNIFER SANCHEZ MD Feb 27, 2025 12:32
== END 2025-02-26 16:40 | disposition home or self-care (01) | DRG 349 ==
LOC: ER 10:51 → OVERFLOW 02-24 01:31 → WEST WING 02-24 04:37
PROVIDERS: ADMIT Family Medicine; ATTEND Family Medicine
DX: T84.54XA Infection and inflammatory reaction due to internal left knee prosthesis, initial encounter (principal); E78.00 Pure hypercholesterolemia, unspecified; K21.9 Gastro-esophageal reflux disease without esophagitis; M79.10 Myalgia, unspecified site; N40.0 Benign prostatic hyperplasia without lower urinary tract symptoms; Y83.8 Other surgical procedures as the cause of abnormal reaction of the patient, or of later complication, without mention of misadventure at the time of the procedure; Z53.20 Procedure and treatment not carried out because of patient's decision for unspecified reasons; Z96.652 Presence of left artificial knee joint; Z88.8 Allergy status to other drugs, medicaments and biological substances; Z90.49 Acquired absence of other specified parts of digestive tract; Z80.42 Family history of malignant neoplasm of prostate; Y92.89 Other specified places as the place of occurrence of the external cause; Z91.199 Patient's noncompliance with other medical treatment and regimen due to unspecified reason
CPT/HCPCS: 36415; 71045; 73701; 74176; 80048; 80053; 81001; 82550; 83690; 84484; 85025; 85652; 86141; 86803; 87340; 93005; 99291; G0378; J0692